=== PATIENT | female | born 1960 | race Caucasian/White ===

== ENCOUNTER 2020-08-13 11:55 | Outpatient (REF) | payer OTHER, SELFPAY ==
[2020-08-13 14:37] LABS: Basophils Percent Auto 0.5 % (0-2); Eosinophils Percent Auto 0.6 % (0-4); Hematocrit 41.4 % (37-47); Hemoglobin 13.3 g/dl (12.0-16.0); Imm Gran Abs Auto 0.02 X10*3/uL (0.00-0.03); Imm Gran Pct Auto 0.3 % (0.0-0.4); Lymphocytes Absolute Auto 2.4 X10*3/uL (1.2-4.9); Lymphocytes Percent Auto 37.8 % (20-40); MANUAL DIFF FLAG NO; Mean Corpuscular HGB Conc 32.1 g/dl (31.0-35.0); Mean Corpuscular Volume 93.2 fL (80-98); Mean Platelet Volume 11.2 fL (9.4-12.3); Monocytes Absolute Auto 0.5 X10*3/uL (0.1-1.2); Neutrophils Absolute Auto 3.4 X10*3/uL (2.0-8.3); Neutrophils Percent Auto 52.8 % (45-73); Platelet Count 219 X10*3/uL (160-400); Red Blood Count 4.44 X10*6/uL (4.20-5.50); Red Cell Distribution Width 12.6 % (11.0-16.0); White Blood Count 6.4 X10*3/uL (4.8-10.8)
[2020-08-13 15:19] LABS: Alanine Aminotransferase 14 U/L (0-31); Aspartate Amino Transferase 18 U/L (5-31)
[2020-08-14 04:47] LABS: ~HepC Num1 0.11 S/CO (0.00-0.79); ~Hepatitis C Antibody Nonreactive (Nonreactive)
[2020-08-14 04:53] LABS: HIV AB/AG Nonreactive (Nonreactive); HIV Num 1 0.08 S/CO (0.00-0.99)
== END 2020-08-13 11:56 | disposition home or self-care (01) ==
LOC: WCCF 11:55
PROVIDERS: PCP Internal Medicine; Visit Provider Internal Medicine
DX: Z02.1 Encounter for pre-employment examination (principal); Z01.84 Encounter for antibody response examination; Z23 Encounter for immunization
CPT/HCPCS: 36415; 84450; 84460; 85025; 86803; 90715; 99202

== ENCOUNTER → 2020-08-14 13:42 | Outpatient (BNVA) | payer OTHER, SELFPAY | PROVIDERS: PCP Internal Medicine; Visit Provider Physician Assistant Medical | DX: Z20.822 Contact with and (suspected) exposure to COVID-19 (principal) | CPT/HCPCS: 99213 ==

== ENCOUNTER → 2020-08-20 09:42 | Outpatient (BNVA) | payer OTHER, SELFPAY | PROVIDERS: PCP Internal Medicine; Visit Provider Physician Assistant Medical | DX: Z20.822 Contact with and (suspected) exposure to COVID-19 (principal) | CPT/HCPCS: 99213 ==

== ENCOUNTER → 2020-08-27 10:01 | Outpatient (BNVA) | payer OTHER, SELFPAY | PROVIDERS: PCP Internal Medicine | DX: Z20.822 Contact with and (suspected) exposure to COVID-19 (principal) | CPT/HCPCS: 36415; 80076; 82150; 82565; 85025; 99211 ==

== ENCOUNTER → 2020-09-24 10:36 | Outpatient (BNVA) | payer OTHER, SELFPAY | PROVIDERS: PCP Internal Medicine | DX: Z77.21 Contact with and (suspected) exposure to potentially hazardous body fluids (principal) | CPT/HCPCS: 36415; 84450; 84460; 87389; 99211 ==

== ENCOUNTER → 2020-11-24 13:03 | Outpatient (BNVA) | payer OTHER, SELFPAY | PROVIDERS: PCP Internal Medicine | DX: Z13.89 Encounter for screening for other disorder (principal) | CPT/HCPCS: 36415; 84450; 84460; 86803; 87389; 99211 ==

== ENCOUNTER 2021-01-16 07:52 | Outpatient (REF) | payer OTHER, SELFPAY ==
[2021-01-17 12:45] LABS: BV Int Neg Control Negative (Negative); BV Int Pos Control Positive (Positive)
[2021-01-20 17:22] LABS: HPV mRNA E6/E7 rflx Not Detected (Not Detected)
== END 2021-01-16 07:53 | disposition home or self-care (01) ==
LOC: HO.LAB 07:52
PROVIDERS: PCP Internal Medicine; Visit Provider Obstetrics & Gynecology
DX: Z01.411 Encounter for gynecological examination (general) (routine) with abnormal findings (principal); Z11.51 Encounter for screening for human papillomavirus (HPV); N95.8 Other specified menopausal and perimenopausal disorders; N89.8 Other specified noninflammatory disorders of vagina
CPT/HCPCS: 87480; 87510; 87624; 87660; 88142

== ENCOUNTER 2021-02-03 07:02 | Outpatient (REF) | payer OTHER, SELFPAY ==
[2021-02-03 08:30] LABS: MANUAL DIFF FLAG NO
[2021-02-03 08:36] LABS: Basophils Percent Auto 0.8 % (0-2); Eosinophils Absolute Auto 0.1 X10*3/uL (0.0-0.4); Eosinophils Percent Auto 1.7 % (0-4); Hematocrit 43.5 % (37-47); Hemoglobin 13.7 g/dl (12.0-16.0); Imm Gran Abs Auto 0.01 X10*3/uL (0.00-0.03); Imm Gran Pct Auto 0.2 % (0.0-0.4); Lymphocytes Absolute Auto 1.9 X10*3/uL (1.2-4.9); Lymphocytes Percent Auto 39.9 % (20-40); Mean Corpuscular HGB Conc 31.5 g/dl (31.0-35.0); Mean Corpuscular Hemoglobin 29.5 pg (27.0-33.0); Mean Corpuscular Volume 93.5 fL (80-98); Mean Platelet Volume 10.9 fL (9.4-12.3); Monocytes Absolute Auto 0.3 X10*3/uL (0.1-1.2); Monocytes Percent Auto 6.9 % (2-11); Neutrophils Absolute Auto 2.4 X10*3/uL (2.0-8.3); Neutrophils Percent Auto 50.5 % (45-73); Platelet Count 204 X10*3/uL (160-400); Red Blood Count 4.65 X10*6/uL (4.20-5.50); Red Cell Distribution Width 12.6 % (11.0-16.0); White Blood Count 4.8 X10*3/uL (4.8-10.8)
[2021-02-03 08:59] LABS: Alanine Aminotransferase 16 U/L (0-31); Albumin Level 4.3 g/dL (3.5-5.0); Alkaline Phosphatase 51 U/L (39-117); Anion Gap 12 (12-20); Aspartate Amino Transferase 20 U/L (5-31); Bilirubin Total 0.8 mg/dL (0.0-1.0); Blood Urea Nitrogen 13 mg/dL (9-16); Calcium 9.8 mg/dL (8.4-10.2); Carbon Dioxide 28 mmol/L (22-29); Chloride 108 mmol/L (96-108); Cholesterol 271 mg/dL; Estimated Glomerular Filt Rate > 60; Glucose Random 92 mg/dL (60-115); HDL Cholesterol 43 mg/dL; LDL Cholesterol Calculated 202 mg/dl; Potassium 4.1 mmol/L (3.3-5.1); Sodium 144 mmol/L (135-145); Total Protein 6.9 g/dL (6.5-8.0); Triglycerides 132 mg/dL
[2021-02-03 09:24] LABS: Free T4 (Free Thyroxine) 0.94 ng/dL (0.71-1.85); Thyroid Stimulating Hormone 0.82 uIU/mL (0.32-4.0); Vitamin D 25-OH Total 35.1 ng/mL (>30)
[2021-02-03 09:28] LABS: Folate 16.9 ng/mL (> or = 4.0); Vitamin B12 361 pg/mL (200-900)
== END 2021-02-03 07:03 | disposition home or self-care (01) ==
LOC: HO.LAB 07:02
PROVIDERS: PCP Internal Medicine; Visit Provider Internal Medicine
DX: E78.00 Pure hypercholesterolemia, unspecified (principal)
CPT/HCPCS: 36415; 80053; 80061; 82306; 82607; 82746; 84439; 84443; 85025

== ENCOUNTER 2021-02-19 09:37 | Outpatient (REF) | payer OTHER, SELFPAY ==
--- NOTE | ~2021-02-19 | MM_ITS ---
EXAMINATION: MM SCREENING DIGITAL BREAST TOMOSYNTHESIS, BILATERAL CLINICAL INFORMATION: Screening. Asymptomatic. The lifetime risk of breast cancer based on the Tyrer-Cuzick Model is 7%. COMPARISON: Mammography: 07/26/2018, 07/20/2016, 07/13/2016 TECHNIQUE: Digital breast tomosynthesis is performed in both the craniocaudal and mediolateral oblique views along with computer-aided detection (CAD). Synthesized 2D images are generated from the tomosynthesis. FINDINGS: The breasts are heterogeneously dense, which may obscure small masses (ACR BI-RADS breast composition Category c). There are no significant masses, abnormal calcifications, or other abnormalities. Breast tissue composition borders on average fibroglandular. There is no significant change from prior exams. The axilla and skin contours are unremarkable. MM/MM tomosynthesis screening BI IMPRESSION: No mammographic evidence of malignancy. ASSESSMENT: BI-RADS 1: Negative RECOMMENDATION: Routine annual mammography screening. This patient's information was entered into a reminder system with a target due date for their next mammogram.
== END 2021-02-19 09:38 | disposition home or self-care (01) ==
LOC: HO.MAMMO 09:37
PROVIDERS: Visit Provider Obstetrics & Gynecology
DX: Z12.31 Encounter for screening mammogram for malignant neoplasm of breast (principal)
CPT/HCPCS: 77063; 77067

== ENCOUNTER → 2021-02-23 09:02 | Outpatient (BNVA) | payer OTHER, SELFPAY | PROVIDERS: PCP Internal Medicine | DX: Z13.79 Encounter for other screening for genetic and chromosomal anomalies (principal) | CPT/HCPCS: 36415; 84450; 84460; 86803; 87389; 99211 ==

== ENCOUNTER 2021-10-09 11:36 | Outpatient (REF) | payer OTHER, SELFPAY ==
[2021-10-09 12:15] LABS: COVID-19 Test Negative (Negative); IDNOW Serial# 08D9AD1C
== END 2021-10-09 11:37 | disposition home or self-care (01) ==
LOC: HO.LAB 11:36
PROVIDERS: Visit Provider Internal Medicine
DX: Z20.822 Contact with and (suspected) exposure to COVID-19 (principal)
CPT/HCPCS: 87635; C9803

== ENCOUNTER → 2022-05-19 09:43 | Outpatient (RCR) | payer OTHER, SELFPAY ==
[2020-06-11 07:34] LABS: COVID-19 Test Negative (Negative)
[2020-06-18 07:55] LABS: COVID-19 Test Negative (Negative)
[2020-06-25 08:19] LABS: COVID-19 Test Negative (Negative)
[2020-07-02 07:29] LABS: COVID-19 Test Negative (Negative)
[2020-07-09 07:48] LABS: COVID-19 Test Negative (Negative)
[2020-07-16 07:17] LABS: COVID-19 Test Positive (Negative)
[2020-07-19 13:59] LABS: SARS-COV-2 PCR UMBRL NOT DETECTED
== END | disposition home or self-care (01) ==
LOC: HO.EMPCOV 06-11 07:14
PROVIDERS: Visit Provider Internal Medicine
DX: Z20.828 Contact with and (suspected) exposure to other viral communicable diseases (principal)
CPT/HCPCS: 87635; C9803; U0003

== ENCOUNTER 2022-07-06 07:26 | Outpatient (REF) | payer OTHER, SELFPAY ==
--- NOTE | ~2022-07-06 | MM_ITS ---
EXAMINATION: MM SCREENING DIGITAL BREAST TOMOSYNTHESIS, BILATERAL CLINICAL INFORMATION: Screening. Asymptomatic. The lifetime risk of breast cancer based on the Tyrer-Cuzick Model is 6%. COMPARISON: Mammography: 02/19/2021, 07/26/2018, 07/20/2016 TECHNIQUE: Digital breast tomosynthesis is performed in both the craniocaudal and mediolateral oblique views along with computer-aided detection (CAD). Synthesized 2D images are generated from the tomosynthesis. FINDINGS: The breasts are heterogeneously dense, which may obscure small masses (ACR BI-RADS breast composition Category c). Breast tissue composition borders on average fibroglandular. There is no architectural abnormality or developing density. There are no significant masses, abnormal calcifications, or other abnormalities. The axilla are unremarkable. No significant changes. MM/MM tomosynthesis screening BI IMPRESSION: No mammographic evidence of malignancy. ASSESSMENT: BI-RADS 1: Negative RECOMMENDATION: Routine annual mammography screening. This patient's information was entered into a reminder system with a target due date for their next mammogram.
== END 2022-07-06 07:27 | disposition home or self-care (01) ==
LOC: HO.MAMMO 07:26
PROVIDERS: PCP Internal Medicine; Visit Provider Internal Medicine
DX: Z12.31 Encounter for screening mammogram for malignant neoplasm of breast (principal)
CPT/HCPCS: 77063; 77067

== ENCOUNTER 2022-12-31 12:58 | Outpatient (REF) | payer OTHER, SELFPAY ==
--- NOTE | ~2022-12-31 | US_ITS ---
EXAMINATION: US LOWER EXTREMITY VENOUS (REFLUX EXAM), BILATERAL CLINICAL INDICATION: Chronic venous insufficiency with history of varicose veins pain. Prior bilateral great saphenous vein ablation COMPARISON: None. TECHNIQUE: Color flow triplex imaging and compression Doppler was performed to evaluate both the deep and the superficial systems bilaterally. To evaluate the superficial system, the examination was performed in the upright position. Color-flow Doppler ultrasound and compression ultrasound were utilized. In addition, maneuvers were utilized to demonstrate reflux. FINDINGS: 1. DEEP VENOUS ULTRASOUND OF THE RIGHT LOWER EXTREMITY: Common Femoral Vein: Compressible, normal respiratory variation and augmented flow. Femoral Vein: Compressible, normal color flow and augmentation. Popliteal Vein: Compressible, normal augmentation. Deep Reflux: Deep venous reflux in the common femoral vein measuring 1268 ms There is no evidence of a Luevano's cyst. 2. SUPERFICIAL ULTRASOUND WITH DOPPLER OF RIGHT LOWER EXTREMITY: GREAT SAPHENOUS VEIN: Saphenofemoral Junction: 1.1 cm; Reflux: 2396 ms Proximal Thigh: 0.9 cm; Reflux: 2820 ms Mid Thigh: Not visualized Above Knee: Not visualized At Knee: Not visualized Below Knee: 0.2 cm; Reflux: 0 ms Mid Calf: 0.3 cm; Reflux: 0 ms Ankle: 0.3 cm; Reflux: 0 ms DUPLICATED MEDIAL GREAT SAPHENOUS VEIN: Diameter: None imaged Reflux: NA DUPLICATED LATERAL GREAT SAPHENOUS VEIN: Diameter: 0.2 cm Reflux: None SMALL SAPHENOUS VEIN: Proximal: 0.6 cm; Reflux: 0 ms Distal: 0.2 cm; Reflux: 0 ms VEIN OF GIACOMINI: Size: NA Reflux: NA PERFORATORS: Location: Proximal and mid calf off the great saphenous vein and midcalf off the small saphenous Size: 0.3 cm Reflux: None VARICOSITIES: Location: Large varicosities extending from the proximal and mid thigh tube in the proximal calf which are arising from the great saphenous vein remnant in the proximal thigh Size: 0.7 to 0.9 cm Reflux: Ranging from 1104 ms to 2416 ms 3. DEEP VENOUS ULTRASOUND OF THE LEFT LOWER EXTREMITY: Common Femoral Vein: Compressible, normal respiratory variation and augmented flow. Femoral Vein: Compressible, normal color flow and augmentation. Popliteal Vein: Compressible, normal augmentation. Deep Reflux: Deep venous reflux seen in the popliteal vein measuring 1128 ms There is no evidence of a Luevano's cyst. 4. SUPERFICIAL ULTRASOUND WITH DOPPLER OF LEFT LOWER EXTREMITY: GREAT SAPHENOUS VEIN: Saphenofemoral Junction: 1.0 cm; Reflux: 2452 ms Proximal Thigh: Not visualized Mid Thigh: Not visualized Above Knee: 0.4 cm; Reflux: 2956 ms At Knee: 0.3 cm; Reflux: 0 ms Below Knee: 0.3 cm; Reflux: 0 ms Mid Calf: 0.4 cm; Reflux: 1440 ms Ankle: 0.4 cm; Reflux: 2264 ms DUPLICATED MEDIAL GREAT SAPHENOUS VEIN: Diameter: None imaged Reflux: NA DUPLICATED LATERAL GREAT SAPHENOUS VEIN: Diameter: None imaged Reflux: NA SMALL SAPHENOUS VEIN: Proximal: 0.4 cm; Reflux: 0 ms Distal: 0.1 cm; Reflux: 0 ms VEIN OF GIACOMINI: Size: NA Reflux: NA PERFORATORS: Location: Mid calf Size: 0.4 cm Reflux: None VARICOSITIES: Location: Left groin arising from the saphenofemoral junction extending through the thigh. Varicosities are arising from the residual great saphenous vein in the proximal calf Size: 0.4 to 0.8 cm Reflux: Ranging from 844 ms to 2884 ms US/US venous duplex LE BI IMPRESSION: Right: Great saphenous vein from the proximal to mid thigh to the knee is occluded consistent with prior ablation. Residual great saphenous vein at the saphenofemoral junction and proximal thigh is dilated with severe reflux feeding into large residual or recurrent varicose veins throughout the right lower extremity as described above Left: Great saphenous vein from the proximal thigh to the mid thigh is occluded consistent with prior ablation. Larger varicose veins arising from the saphenofemoral junction. Residual great saphenous vein from the distal thigh through the ankle with severe reflux as described above. Additional branching varicosities arising in the proximal calf as described above
== END 2022-12-31 12:59 | disposition home or self-care (01) ==
LOC: HO.US 12:58
PROVIDERS: PCP Internal Medicine; Visit Provider Surgery Vascular Surgery
DX: I83.893 Varicose veins of bilateral lower extremities with other complications (principal)
CPT/HCPCS: 93970

== ENCOUNTER 2023-02-25 12:35 | Outpatient (AMB) | payer OTHER, SELFPAY ==
--- NOTE | 2023-02-25 12:36 | A.OFFVIS_ITS ---
Intake Vital Signs 02/25/23 12:37 Height 5 ft 6 in Weight 164 lb BMI 26.5 Intake Visit Reasons: Left GSV Venaseal Allergies atorvastatin Allergy (Unknown, Verified 02/25/23 12:37) joint pain pravastatin Allergy (Unknown, Verified 02/25/23 12:37) Unknown simvastatin Allergy (Unknown, Verified 02/25/23 12:37) Unknown [facility] Medical History Annual physical exam Anxiety Colonoscopy refused COVID-19 virus infection Exposure to blood or body fluid Hypercholesterolemia Low back pain Migraine Vitamin D deficiency Surgical History History of detached retina repair History of eye surgery History of varicose veins Family History Father No problems noted. Mother Stroke Hypertension Paternal Uncle Myocardial infarction Family/Other Depression with anxiety Daughter Substance abuse Social History Housing: House Alcohol intake: never Patient Tobacco Use Status: Former Tobacco user Years Smoked: teenager e-Cigarette/Vaping Use: Never Used Second Hand Smoke Exposure: Yes service: No Current occupational status: employed Female Reproductive History Menstrual Age of Menarche: 12 Physical Exam Vital Signs: BMI result Body Mass Index 26.5 Office Procedures Vascular Office Procedure Details Details: Diagnosis: Left Leg varicose veins with inflammation Procedure: Endovenous Ablation of the left Great Saphenous Vein with VenaSeal Closure System Anesthesia: Local infiltration 5 cc, Estimated Blood Loss: min Specimen: none Duplex ultrasound was used to map out the insufficient saphenous vein, and access was determined and marked on the overlying skin. The depth and diameter of the vein(s) to be treated was documented. The patient was placed supine on the procedure table and the leg was prepped and draped using sterile technique. Ultasound guidance was again used to localize the access site. 1% lidocaine was injected as a local anesthetic in the subcutaneous tissues at the target location in the GSV in the lower leg. Using ultrasound guidance, access was gained at this location with the 19 gauge thin walled access needle and followed by introduction of a short guidewire, location confirmed with ultrasound. A small, 3 mm incision was made at the access site to allow for introduction and placement of the 7 Fr x7cm introducer/dilator. The dilator and guidewire were removed. The 0.035 guidewire from the VenaSeal kit was then introduced and positioned at the saphenofemoral junction using ultrasound guidance. The 80 cm 7 Fr introducer sheath/dilator was positioned 5cm from the saphenofemoral junction. The guidewire and dilator were removed, and the remaining sheath was flushed with sterile saline, with the syringe remaining in place prior to the n ext steps. The cyanoacrylate adhesive was precisely primed into the 5 F delivery catheter and this catheter/syringe combination was attached within the dispenser gun. This assembly was introduced through the 7F sheath and positioned 5 cm caudal of the saphenofemoral junction under ultrasound guidance. The steps from the IFU were followed for dispensing amounts, locations and compression times, 2 aliquots proximally with 3 minutes of compression, and 1 aliquot every 3 cm distally with 30 sec of compression along the course of the vessel. Following the last injection and compression sequence, the catheter and introducer sheath were pulled out from the access site. Hemostasis was achieved with manual compression and an adhesive bandage was applied to the incision. Ultrasound confirmed complete coaptation and closure of the treated segments of the GSV, and the absence of any DVT at the saphenofemoral junction. Treatment time was approximately 4 minutes and the vein length treated was 15 cm. The drapes were removed and the patient cleaned and prepared for discharge. Post op ultrasound check is scheduled for 48-72 hours and the patient was given written post-op instructions. 52358 - Endoven Ther Chem Adhes 1st All charges added?: Procedure code (CPT) selection complete Coding Level of Care Code Procedure Only Diagnoses CPT Codes Details - Vascular 3: 16122 - Endoven Ther Chem Adhes 1st ([id number])
[2023-02-25 12:37] VITALS: BMI 26.5
== END 2023-02-25 13:18 | disposition home or self-care (01) ==
PROVIDERS: PCP Internal Medicine; Visit Provider Surgery Vascular Surgery
DX: I83.12 Varicose veins of left lower extremity with inflammation (principal)
CPT/HCPCS: 36482; 76937

== ENCOUNTER → 2023-02-25 12:35 | Outpatient (BNVA) | payer OTHER, SELFPAY | PROVIDERS: PCP Internal Medicine; Visit Provider Surgery Vascular Surgery | DX: M79.605 Pain in left leg (principal); I83.12 Varicose veins of left lower extremity with inflammation | CPT/HCPCS: 36482 ==

== ENCOUNTER 2023-02-28 12:25 | Outpatient (REF) | payer OTHER, SELFPAY ==
--- NOTE | ~2023-02-28 | US_ITS ---
EXAMINATION: TRIPLEX SCANNING OF LEFT LOWER EXTREMITY; SUPERFICIAL ULTRASOUND WITH DOPPLER OF LEFT LOWER EXTREMITY CLINICAL INFORMATION: Status post Venaseal of a 2.1 cm segment of the left great saphenous vein Ambulatory phlebectomy performed: No COMPARISON: preprocedure studies. TECHNIQUE: Color flow triplex imaging and compression Doppler were performed as well as superficial ultrasound with Doppler. FINDINGS: LEFT LOWER EXTREMITY DEEP VENOUS SYSTEM: Respiratory variation, normal compression and augmented flow are noted throughout the lower extremity. The visualized common femoral vein, femoral vein, profunda femoral vein, popliteal vein and the calf veins show no evidence of deep venous thrombosis. There is no evidence of Luevano's cyst. SUPERFICIAL VENOUS SYSTEM: The great saphenous vein is occluded from the access site to just before the saphenofemoral junction. There is no extension of thrombus into the deep system. US/US venous duplex LE LT IMPRESSION: No evidence of DVT.
== END 2023-02-28 12:26 | disposition home or self-care (01) ==
LOC: HO.US 12:25
PROVIDERS: PCP Internal Medicine; Visit Provider Surgery Vascular Surgery
DX: M79.605 Pain in left leg (principal)
CPT/HCPCS: 93971

== ENCOUNTER 2023-03-15 08:55 | Outpatient (AMB) | payer OTHER, SELFPAY ==
[2023-03-15 08:58] VITALS: BMI 26.5
--- NOTE | 2023-03-15 08:58 | A.OFFVIS_ITS ---
Intake Vital Signs 03/15/23 08:58 Height 5 ft 6 in Weight 164 lb BMI 26.5 Intake Visit Reasons: 2 wk follow up Left Venaseal 02/25/23 Intake Note: Patient is here for a 2 week follow up left venaseal 02/25/23, patient stated left leg feels better and no complaints about right leg Allergies atorvastatin Allergy (Unknown, Verified 03/15/23 09:00) joint pain pravastatin Allergy (Unknown, Verified 03/15/23 09:00) Unknown simvastatin Allergy (Unknown, Verified 03/15/23 09:00) Unknown HPI 2 wk follow up Left Venaseal 02/25/23 HPI Details Patient is status post left lower extremity Cyanoacralate ablation. She appears to be doing relatively well with that she reports that the swelling and discomfort have decreased significantly. She now presents for follow-up. Of note she does report right lower extremity discomfort in terms her superficial varicosities. They do appear to be a source of pain and discomfort. 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 [facility] Medical History Annual physical exam Anxiety Colonoscopy refused COVID-19 virus infection Exposure to blood or body fluid Hypercholesterolemia Low back pain Migraine Vitamin D deficiency Surgical History History of detached retina repair History of eye surgery History of varicose veins Family History Father No problems noted. Mother Stroke Hypertension Paternal Uncle Myocardial infarction Family/Other Depression with anxiety Daughter Substance abuse Social History Housing: House Alcohol intake: never Patient Tobacco Use Status: Former Tobacco user Years Smoked: teenager e-Cigarette/Vaping Use: Never Used Second Hand Smoke Exposure: Yes service: No Current occupational status: employed Female Reproductive History Menstrual Age of Menarche: 12 Review of Systems Const Reports as per HPI ENT Reports no additional complaints Card Denies chest pain, Denies chest pain at rest and Denies chest pain with activity Resp Denies chest congestion and Denies cough GI Reports no additional complaints Musc Details: pain over varicosities, aching of lower extremities, swelling, cramping, heaviness and tiredness, itching Denies abnormal gait Skin/Breast Reports pruritus and Denies wounds Neuro Reports no additional complaints and Denies abnormal gait Psych Denies no additional complaints Physical Exam Vital Signs: BMI result Body Mass Index 26.5 Const General: cooperative, healthy appearing and comfortable Orientation/consciousness: oriented to person, oriented to place and oriented to time Neck Carotids: no bruits Chest Chest palpation & inspection: normal inspection of the chest and normal palpation of entire chest wall Resp Effort & Inspection: normal respiratory effort and able to speak in complete sentences Cardio Rate: regular rate Heart sounds: S1 normal heart sound present and S2 normal heart sound present Peripheral pulses: Peripheral pulses 2+ throughout GI Inspection: Yes normal to inspection Skin Other: +2 edema, large rope-like varicosities greater than 4 mm right calf and thigh CEAP Classification C4 - skin color changes Ep - Etiology Primary As - superficial veins P - reflux General skin exam: dry skin Neuro General: oriented to person, oriented to place and oriented to time Extrem Right lower extremity: full ROM, normal capillary refill and edema Left lower extremity: full ROM, normal capillary refill and edema Psych Mental Status: mental status grossly normal Assessment & Plan Assessment & Plan (1) Varicose veins of left lower extremity with inflammation: Comment: Venous ablation 2010 - Dr. Fernandez 02/25/2023 - left great saphenous vein Cyanoacralate ablation Code(s): I83.12 - Varicose veins of left lower extremity with inflammation (2) Varicose veins of right lower extremity with inflammation: Code(s): I83.11 - Varicose veins of right lower extremity with inflammation Plan: This patient has varicose veins with inflammation. They continue to be a source of discomfort for the patient. The patient has tried conservative treatment with compression, leg elevation and exercise program for over 3 months time. They have been compliant with all treatment. This has provided minimal relief for the patient. I do not anticipate this course of treatment will alter the underlying etiology. The patient has been scheduled for lower extremity venous treatment inclusive of --- right lower extremity microphlebectomy. Risks, benefits, and complications of this procedure has been discussed in detail with the patient including but not limited to bleeding, infection, and the development of a DVT. The patient has demonstrated a clear understanding and has consented. We will schedule the patient as soon as possible. Thank you for allowing us to participate in this patient's care. If there are any questions or concerns please do not hesitate to contact us. Coding Level of Care Code Est Pt Level 4 (73652) Diagnoses Varicose veins of left lower extremity with inflammation I83.12 Varicose veins of right lower extremity with inflammation I83.11
== END 2023-03-15 09:38 | disposition home or self-care (01) ==
PROVIDERS: PCP Internal Medicine; Visit Provider Surgery Vascular Surgery
DX: I83.12 Varicose veins of left lower extremity with inflammation (principal); I83.11 Varicose veins of right lower extremity with inflammation
CPT/HCPCS: 99214

== ENCOUNTER → 2023-03-15 08:55 | Outpatient (BNVA) | payer OTHER, SELFPAY | PROVIDERS: PCP Internal Medicine; Visit Provider Surgery Vascular Surgery ==

== ENCOUNTER 2023-04-22 09:18 | Outpatient (AMB) | payer OTHER, SELFPAY ==
--- NOTE | 2023-04-22 10:24 | A.OFFVIS_ITS ---
Intake Vital Signs 04/22/23 10:27 Height 5 ft 6 in Weight 164 lb BMI 26.5 Intake Visit Reasons: Right Leg Microphlebectomy Allergies atorvastatin Allergy (Unknown, Verified 04/22/23 10:28) joint pain pravastatin Allergy (Unknown, Verified 04/22/23 10:28) Unknown simvastatin Allergy (Unknown, Verified 04/22/23 10:28) Unknown PFSH Medical History Exposure to blood or body fluid Low back pain Annual physical exam COVID-19 virus infection Colonoscopy refused Anxiety Vitamin D deficiency Hypercholesterolemia Migraine Surgical History History of varicose veins History of detached retina repair History of eye surgery Family History Father No problems noted. Mother Stroke Hypertension Paternal Uncle Myocardial infarction Family/Other Depression with anxiety Daughter Substance abuse Social History Housing: House Alcohol intake: never Patient Tobacco Use Status: Former Tobacco user Years Smoked: teenager e-Cigarette/Vaping Use: Never Used Second Hand Smoke Exposure: Yes service: No Current occupational status: employed Female Reproductive History Menstrual Age of Menarche: 12 Physical Exam Vital Signs: BMI result Body Mass Index 26.5 Office Procedures Vascular Office Procedure Details Details: Diagnosis: Right Leg varicose veins with inflammation Procedure: Right leg Microphlebectomy Anesthesia: Local Infiltration 20 cc, Tumescent: 0 cc. Varicose veins were marked in the standing position on the right leg and the patient was then placed in the supine position. The right lower extremity was prepared and draped to allow knee flexion in the sterile field. The patient had large superficial varicose veins with significant symptoms of pain. It was t herefore determined to perform microphlebectomies of the clusters of varicose veins. The patient had bulging varicose veins which were previously marked in the standing position. A small stab incision was made longitudinally directly overlying the varicose vein in the calf and the varicose vein was grasped with a hemostat aided by a vein hook. It was then dissected as far proximally and distally as possible and avulsed. A total of 23 stab incisions were made and the procedure of stab phlebectomies was repeated 23 times. Hemostasis was checked and stab incision sites were closed with steri-strips and sterile dressing was given with gauze and krilex wrap followed by an haroon bandage. There were no complications and blood loss was minimal. Post-Op instructions were given and a follow-up appointment was recommended. [id number] - Stab Phlebectomy >20 All charges added?: Procedure code (CPT) selection complete Coding Level of Care Code Procedure Only CPT Codes Details - Vascular 6: 40641 - Stab Phlebectomy >20 ([id number])
[2023-04-22 10:27] VITALS: BMI 26.5
== END 2023-04-22 10:20 | disposition home or self-care (01) ==
PROVIDERS: PCP Internal Medicine; Visit Provider Surgery Vascular Surgery
DX: I83.11 Varicose veins of right lower extremity with inflammation (principal)
CPT/HCPCS: 37766

== ENCOUNTER → 2023-04-22 09:18 | Outpatient (BNVA) | payer OTHER, SELFPAY | PROVIDERS: PCP Internal Medicine; Visit Provider Surgery Vascular Surgery | DX: I83.11 Varicose veins of right lower extremity with inflammation (principal) | CPT/HCPCS: 37766 ==

== ENCOUNTER 2023-05-05 08:55 | Outpatient (AMB) | payer OTHER, SELFPAY ==
--- NOTE | 2023-05-05 09:09 | MHC.OFFVIS ---
Intake Vital Signs 05/05/23 09:10 Height 5 ft 6 in Weight 164 lb BMI 26.5 Intake Visit Reasons: 2 week follow up micro Intake Note: 2 week follow up Right LE 04/22/23 w/ hx of Left LE Venaseal 02/25/23. Pt states she has some bruising and discomfort from Right LE micro, she states she had some bleeding as well from incisions. Pt also states that she has some pain to the touch over incisions. Left LE feels fine Accompanied by: Self / Same As Patient Allergies atorvastatin Allergy (Unknown, Verified 05/05/23 09:13) joint pain pravastatin Allergy (Unknown, Verified 05/05/23 09:13) Unknown simvastatin Allergy (Unknown, Verified 05/05/23 09:13) Unknown HPI 2 week follow up micro HPI Details Very pleasant 62-year-old status post right leg microphlebectomy. She appears to be doing relatively well postprocedure. She did have a fair amount of bruising in the medial aspect of the thigh but other than that doing fairly well. She now presents for routine postprocedure follow-up. [facility] Medical History Exposure to blood or body fluid Low back pain Annual physical exam COVID-19 virus infection Colonoscopy refused Anxiety Vitamin D deficiency Hypercholesterolemia Migraine Surgical History History of varicose veins History of detached retina repair History of eye surgery Family History Father No problems noted. Mother Stroke Hypertension Paternal Uncle Myocardial infarction Family/Other Depression with anxiety Daughter Substance abuse Social History Housing: House Alcohol intake: never Patient Tobacco Use Status: Former Tobacco user Years Smoked: teenager e-Cigarette/Vaping Use: Never Used Second Hand Smoke Exposure: Yes service: No Current occupational status: employed Female Reproductive History Menstrual Age of Menarche: 12 Review of Systems Const Reports as per HPI ENT Reports no additional complaints Card Denies chest pain, Denies chest pain at rest and Denies chest pain with activity Resp Denies chest congestion and Denies cough GI Reports no additional complaints Musc Details: pain over varicosities, aching of lower extremities, swelling, cramping, heaviness and tiredness, itching Denies abnormal gait Skin/Breast Reports pruritus and Denies wounds Neuro Reports no additional complaints and Denies abnormal gait Psych Denies no additional complaints Physical Exam Vital Signs: BMI result Body Mass Index 26.5 Const General: cooperative, healthy appearing and comfortable Orientation/consciousness: oriented to person, oriented to place and oriented to time Neck Carotids: no bruits Chest Chest palpation & inspection: normal inspection of the chest and normal palpation of entire chest wall Resp Effort & Inspection: normal respiratory effort and able to speak in complete sentences Cardio Rate: regular rate Heart sounds: S1 normal heart sound present and S2 normal heart sound present Peripheral pulses: Peripheral pulses 2+ throughout GI Inspection: Yes normal to inspection Skin Other: +2 edema, large rope-like varicosities greater than 4 mm more so left thigh CEAP Classification C4 - skin color changes Ep - Etiology Primary As - superficial veins P - reflux General skin exam: dry skin Neuro General: oriented to person, oriented to place and oriented to time Extrem Right lower extremity: full ROM, normal capillary refill and edema Left lower extremity: full ROM, normal capillary refill and edema Psych Mental Status: mental status grossly normal Assessment & Plan Assessment & Plan (1) Varicose veins of right lower extremity with inflammation: Comment: 04/22/2023 - right leg microphlebectomy Code(s): I83.11 - Varicose veins of right lower extremity with inflammation Plan: Patient has done well with microphlebectomy. She does have some residual varicosities in the left lower extremity. At the current time she would like to hold off and treat this conservatively. We did discuss conservative measures including compression, elevation, exercise. The patient will follow up with us in approximately 3 months time. Thank you for allowing us to assist in her care. If there are any questions or concerns please do not hesitate to contact us. (2) Varicose veins of left lower extremity with inflammation: Comment: Venous ablation 2010 - Dr. Fernandez 02/25/2023 - left great saphenous vein Cyanoacralate ablation Code(s): I83.12 - Varicose veins of left lower extremity with inflammation Coding Level of Care Code Est Pt Level 3 (86266) Diagnoses Varicose veins of right lower extremity with inflammation I83.11 Varicose veins of left lower extremity with inflammation I83.12
[2023-05-05 09:10] VITALS: BMI 26.5
== END 2023-05-05 09:31 | disposition home or self-care (01) ==
PROVIDERS: PCP Internal Medicine; Visit Provider Surgery Vascular Surgery
DX: I83.11 Varicose veins of right lower extremity with inflammation (principal); I83.12 Varicose veins of left lower extremity with inflammation
CPT/HCPCS: 99213

== ENCOUNTER → 2023-05-05 08:55 | Outpatient (BNVA) | payer OTHER, SELFPAY | PROVIDERS: PCP Internal Medicine; Visit Provider Surgery Vascular Surgery ==

== ENCOUNTER 2023-07-12 07:36 | Outpatient (REF) | payer OTHER, SELFPAY ==
--- NOTE | ~2023-07-12 | MM_ITS ---
EXAMINATION: MM SCREENING DIGITAL BREAST TOMOSYNTHESIS, BILATERAL CLINICAL INFORMATION: Screening. Asymptomatic. COMPARISON: Mammography: This study is compared with prior exams dating back to 2015. TECHNIQUE: Digital breast tomosynthesis is performed in both the craniocaudal and mediolateral oblique views along with computer-aided detection (CAD). Synthesized 2D images are generated from the tomosynthesis. FINDINGS: There are scattered areas of fibroglandular density (ACR BI-RADS breast composition Category b). There are no significant masses, abnormal calcifications, or other abnormalities. MM/MM tomosynthesis screening BI IMPRESSION: No mammographic evidence of malignancy. ASSESSMENT: BI-RADS BI-RADS 1 - Negative RECOMMENDATION: Routine annual mammography screening. 1 year F/U This examination should not preclude the clinical evaluation of a suspicious palpable abnormality. This patient's information was entered into a reminder system with a target due date for their next mammogram.
== END 2023-07-12 07:37 | disposition home or self-care (01) ==
LOC: HO.MAMMO 07:36
PROVIDERS: PCP Internal Medicine; Visit Provider Internal Medicine
DX: Z12.31 Encounter for screening mammogram for malignant neoplasm of breast (principal)
CPT/HCPCS: 77063; 77067

== ENCOUNTER → 2023-07-12 07:45 | Outpatient (BNV) | payer OTHER, SELFPAY | PROVIDERS: PCP Internal Medicine; Visit Provider Radiology Diagnostic Radiology | DX: Z12.31 Encounter for screening mammogram for malignant neoplasm of breast (principal) | CPT/HCPCS: 77063; 77067 ==

== ENCOUNTER 2023-08-16 13:46 | Outpatient (AMB) | payer OTHER, SELFPAY ==
--- NOTE | 2023-08-16 13:47 | MHC.OFFVIS ---
Intake Vital Signs 08/16/23 13:50 Height 5 ft 6 in Weight 168 lb BMI 27.1 BP 158/84 H Blood Pressure Location Rt brachial Position Sitting Pulse 87 Pulse Source Pulse Oximeter Pulse Oximetry (%) 97 Oxygen Delivery Method Room Air Intake Visit Reasons: follow up leg check Intake Note: Pt presents to the office today for a follow up leg check. Pt states she gets discomfort in both legs after standing or walking longer periods of time. Pt denies any swelling. Allergies atorvastatin Allergy (Unknown, Verified 08/16/23 13:51) joint pain pravastatin Allergy (Unknown, Verified 08/16/23 13:51) Unknown simvastatin Allergy (Unknown, Verified 08/16/23 13:51) Unknown HPI follow up leg check HPI Details Very pleasant 62-year-old female presents for follow-up regarding venous disease. She is undergone previous venous procedures including right leg microphlebectomy with us. She continues to have discomfort and pain on her left lower extremity veins as well. 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 She now presents for routine follow-up. [facility] Medical History Exposure to blood or body fluid Low back pain Annual physical exam COVID-19 virus infection Colonoscopy refused Anxiety Vitamin D deficiency Hypercholesterolemia Migraine Surgical History History of varicose veins History of detached retina repair History of eye surgery Family History Father No problems noted. Mother Stroke Hypertension Paternal Uncle Myocardial infarction Family/Other Depression with anxiety Daughter Substance abuse Social History Housing: House Alcohol intake: never Patient Tobacco Use Status: Former Tobacco user Years Smoked: teenager e-Cigarette/Vaping Use: Never Used Second Hand Smoke Exposure: Yes service: No Current occupational status: employed Female Reproductive History Menstrual Age of Menarche: 12 Review of Systems Const Reports as per HPI ENT Reports no additional complaints Card Denies chest pain, Denies chest pain at rest and Denies chest pain with activity Resp Denies chest congestion and Denies cough GI Reports no additional complaints Musc Details: pain over varicosities, aching of lower extremities, swelling, cramping, heaviness and tiredness, itching Denies abnormal gait Skin/Breast Reports pruritus and Denies wounds Neuro Reports no additional complaints and Denies abnormal gait Psych Denies no additional complaints Physical Exam Vital Signs: Last Vital Signs Pulse 87 08/16/23 13:50 BP 158/84 H 08/16/23 13:50 Pulse Ox 97 08/16/23 13:50 Oxygen Delivery Method Room Air 08/16/23 13:50 BMI result Body Mass Index 27.1 Const General: cooperative, healthy appearing and comfortable Orientation/consciousness: oriented to person, oriented to place and oriented to time Neck Carotids: no bruits Chest Chest palpation & inspection: normal inspection of the chest and normal palpation of entire chest wall Resp Effort & Inspection: normal respiratory effort and able to speak in complete sentences Cardio Rate: regular rate Heart sounds: S1 normal heart sound present and S2 normal heart sound present Peripheral pulses: Peripheral pulses 2+ throughout GI Inspection: Yes normal to inspection Skin Other: +2 edema, large rope-like varicosities greater than 4 mm left knee and thigh CEAP Classification C4 - skin color changes Ep - Etiology Primary As - superficial veins P - reflux General skin exam: dry skin Neuro General: oriented to person, oriented to place and oriented to time Extrem Right lower extremity: full ROM, normal capillary refill and edema Left lower extremity: full ROM, normal capillary refill and edema Psych Mental Status: mental status grossly normal Assessment & Plan Assessment & Plan (1) Varicose veins of right lower extremity with inflammation: Comment: 04/22/2023 - right leg microphlebectomy Code(s): I83.11 - Varicose veins of right lower extremity with inflammation Plan: Currently doing well. Continue with compression (2) Varicose veins of left lower extremity with inflammation: Comment: Venous ablation 2010 - Dr. Fernandez 02/25/2023 - left great saphenous vein Cyanoacralate ablation Code(s): I83.12 - Varicose veins of left lower extremity with inflammation Plan: This patient has varicose veins with inflammation. They continue to be a source of discomfort for the patient. The patient has tried conservative treatment with compression, leg elevation and exercise program for over 3 months time. They have been compliant with all treatment. This has provided minimal relief for the patient. I do not anticipate this course of treatment will alter the underlying etiology. The patient has been scheduled for lower extremity venous treatment inclusive of --- left leg microphlebectomy. Risks, benefits, and complications of this procedure has been discussed in detail with the patient including but not limited to bleeding, infection, and the development of a DVT. The patient has demonstrated a clear understanding and has consented. We will schedule the patient as soon as possible. Thank you for allowing us to participate in this patient's care. If there are any questions or concerns please do not hesitate to contact us. Coding Level of Care Code Est Pt Level 3 (17831) Diagnoses Varicose veins of right lower extremity with inflammation I83.11 Varicose veins of left lower extremity with inflammation I83.12
[2023-08-16 13:50] VITALS: BP 158/84; PULSE 87; O2SAT 97; BMI 27.1
== END 2023-08-16 14:08 | disposition home or self-care (01) ==
PROVIDERS: PCP Internal Medicine; Visit Provider Surgery Vascular Surgery
DX: I83.11 Varicose veins of right lower extremity with inflammation (principal); I83.12 Varicose veins of left lower extremity with inflammation
CPT/HCPCS: 99213

== ENCOUNTER → 2023-08-16 13:46 | Outpatient (BNVA) | payer OTHER, SELFPAY | PROVIDERS: PCP Internal Medicine; Visit Provider Surgery Vascular Surgery ==

== ENCOUNTER 2023-08-25 09:27 | Outpatient (REF) | payer OTHER, SELFPAY | END 2023-08-25 09:28 | disposition home or self-care (01) | LOC: HO.SH 09:27 | PROVIDERS: Visit Provider Internal Medicine | DX: Z01.118 Encounter for examination of ears and hearing with other abnormal findings (principal); H93.13 Tinnitus, bilateral | CPT/HCPCS: 92557; 92567; 92588 ==

== ENCOUNTER 2023-09-16 07:26 | Outpatient (AMB) | payer OTHER, SELFPAY ==
[2023-09-16 07:37] VITALS: BMI 27.1
--- NOTE | 2023-09-16 07:37 | A.OFFVIS_ITS ---
Intake Vital Signs 09/16/23 07:37 Height 5 ft 6 in Weight 168 lb BMI 27.1 Intake Visit Reasons: Left LE Micro Accompanied by: Self / Same As Patient Allergies atorvastatin Allergy (Unknown, Verified 09/16/23 07:37) joint pain pravastatin Allergy (Unknown, Verified 09/16/23 07:37) Unknown simvastatin Allergy (Unknown, Verified 09/16/23 07:37) Unknown [facility] Medical History Exposure to blood or body fluid Low back pain Annual physical exam COVID-19 virus infection Colonoscopy refused Anxiety Vitamin D deficiency Hypercholesterolemia Migraine Surgical History History of varicose veins History of detached retina repair History of eye surgery Family History Father No problems noted. Mother Stroke Hypertension Paternal Uncle Myocardial infarction Family/Other Depression with anxiety Daughter Substance abuse Social History Housing: House Alcohol intake: never Patient Tobacco Use Status: Former Tobacco user Years Smoked: teenager e-Cigarette/Vaping Use: Never Used Second Hand Smoke Exposure: Yes service: No Current occupational status: employed Female Reproductive History Menstrual Age of Menarche: 12 Physical Exam Vital Signs: BMI result Body Mass Index 27.1 Office Procedures Vascular Office Procedure Details Details: Diagnosis: Left Leg varicose veins with inflammation Procedure: Left leg Microphlebectomy Anesthesia: Local Infiltration 20 cc, Tumescent: 0 cc. Varicose veins were marked in the standing position on the left leg and the patient was then placed in the supine position. The left lower extremity was prepared and draped to allow knee flexion in the sterile field. The patient had large superficial varicose veins with significant symptoms of pain. It was therefore determined to perform microphlebectomies of the clusters of varicose veins. The patient had bulging varicose veins which were previously marked in the standing position. A small stab incision was made longitudinally directly overlying the varicose vein in the calf and the varicose vein was grasped with a hemostat aided by a vein hook. It was then dissected as far proximally and distally as possible and avulsed. A total of 21 stab incisions were made and the procedure of stab phlebectomies was repeated 21 times. Hemostasis was checked and stab incision sites were closed with steri-strips and sterile dressing was given with gauze and krilex wrap followed by an haroon bandage. There were no complications and blood loss was minimal. Post-Op instructions were given and a follow-up appointment was recommended. 94416 - Stab Phlebectomy >20 All charges added?: Procedure code (CPT) selection complete Assessment & Plan Assessment & Plan (1) Varicose veins of left lower extremity with inflammation: Comment: Venous ablation 2010 - Dr. Fernandez 02/25/2023 - left great saphenous vein Cyanoacralate ablation 09/16/2023 - left leg microphlebectomy Code(s): I83.12 - Varicose veins of left lower extremity with inflammation Plan: See op note Coding Level of Care Code Procedure Only Diagnoses Varicose veins of left lower extremity with inflammation I83.12 CPT Codes Details - Vascular 6: 92397 - Stab Phlebectomy >20 ([id number])
== END 2023-09-16 09:18 | disposition home or self-care (01) ==
PROVIDERS: PCP Internal Medicine; Visit Provider Surgery Vascular Surgery
DX: I83.12 Varicose veins of left lower extremity with inflammation (principal)
CPT/HCPCS: 37766

== ENCOUNTER → 2023-09-16 07:26 | Outpatient (BNVA) | payer OTHER, SELFPAY | PROVIDERS: PCP Internal Medicine; Visit Provider Surgery Vascular Surgery | DX: I83.12 Varicose veins of left lower extremity with inflammation (principal) | CPT/HCPCS: 37766 ==

== ENCOUNTER 2023-09-29 14:57 | Outpatient (AMB) | payer OTHER, SELFPAY ==
--- NOTE | 2023-09-29 15:01 | MHC.OFFVIS ---
Intake Vital Signs 09/29/23 15:02 Height 5 ft 6 in Weight 168 lb BMI 27.1 Intake Visit Reasons: 2 week follow up Left Micro 09/16/23 Intake Note: Patient presents for follow up , she had a left leg micro on 09/16/23. She is currently taking ibuprofen for discomfort. Says it does not hurt. She states she has swelling on her left ankle that comes and goes. Allergies atorvastatin Allergy (Unknown, Verified 09/29/23 15:05) joint pain pravastatin Allergy (Unknown, Verified 09/29/23 15:05) Unknown simvastatin Allergy (Unknown, Verified 09/29/23 15:05) Unknown HPI 2 week follow up Left Micro 09/16/23 HPI Details Pleasant 62-year-old female presents for follow-up status post left leg microphlebectomy. She has undergone bilateral vein ablation is in previous right leg microphlebectomy. She reports that both legs appear to be doing significantly better. She does have some postprocedure bruising but other than that no other significant complaints. [facility] Medical History Exposure to blood or body fluid Low back pain Annual physical exam COVID-19 virus infection Colonoscopy refused Anxiety Vitamin D deficiency Hypercholesterolemia Migraine Surgical History History of varicose veins History of detached retina repair History of eye surgery Family History Father No problems noted. Mother Stroke Hypertension Paternal Uncle Myocardial infarction Family/Other Depression with anxiety Daughter Substance abuse Social History Housing: House Alcohol intake: never Patient Tobacco Use Status: Former Tobacco user Years Smoked: teenager e-Cigarette/Vaping Use: Never Used Second Hand Smoke Exposure: Yes service: No Current occupational status: employed Female Reproductive History Menstrual Age of Menarche: 12 Review of Systems Const All systems reviewed & are unremarkable except as noted in HPI and below Reports no additional complaints ENT Reports Normal hearing present Card Denies chest pain, Denies chest pain at rest, Denies chest pain with activity and Denies pedal edema Resp Denies cough GI Denies abdominal pain Musc Denies abnormal gait, Denies muscle cramps and Denies radiating pain into limb Skin/Breast Denies skin ulcer and Denies wounds Neuro Reports Normal hearing present and Denies abnormal gait Psych Reports no additional complaints Physical Exam Vital Signs: BMI result Body Mass Index 27.1 Const General: cooperative, healthy appearing and comfortable Orientation/consciousness: oriented to person, oriented to place and oriented to time HEENT Head: Yes normal to inspection Neck Neck: Yes normal visual inspection Carotids: no bruits Chest Chest palpation & inspection: normal inspection of the chest Resp Effort & Inspection: normal respiratory effort and able to speak in complete sentences Auscultation: clear to auscultation bilaterally, no crackles, no rales, no rhonchi and no wheezes Cardio Rate: regular rate Rhythm: regular rhythm Heart sounds: S1 normal heart sound present and S2 normal heart sound present Bruits: no carotid bruits Peripheral pulses: Peripheral pulses 2+ throughout GI Inspection: Yes normal to inspection Skin Wounds: no wounds Hair: normal Neuro General: oriented to person, oriented to place and oriented to time Cranial nerves: Yes CN's II-XII intact bilaterally and Yes Normal hearing present Cognition (Neuro): normal cognition Motor exam (neuro): 5/5 motor strength present throughout Extrem Other: venous exam: No significant superficial varicosities or spider telangiectasias, minimal edema General: No clubbing, No cyanosis and No edema Psych Appearance: grossly normal Mental Status: mental status grossly normal Speech and movement: Normal speech and movement present Assessment & Plan Assessment & Plan (1) Varicose veins of right lower extremity with inflammation: Comment: 04/22/2023 - right leg microphlebectomy Code(s): I83.11 - Varicose veins of right lower extremity with inflammation Plan: See below (2) Varicose veins of left lower extremity with inflammation: Comment: Venous ablation 2010 - Dr. Fernandez 02/25/2023 - left great saphenous vein Cyanoacralate ablation 09/16/2023 - left leg microphlebectomy Code(s): I83.12 - Varicose veins of left lower extremity with inflammation Plan: The patient has done extremely well with all venous treatments. Patient's may often experience postprocedure phlebitic episodes and I have discussed with the patient use of warm compresses and NSAIDS if tolerated for pain discomfort. In addition, I have discussed continued conservative measures including use of compression, leg elevation, and exercise. The patient was also given an information sheet regarding appropriate use of compression stockings and future purchases. Thank you for allowing us to care for your patient with venous disease. Coding Level of Care Code Est Pt Level 3 (46797) Diagnoses Varicose veins of right lower extremity with inflammation I83.11 Varicose veins of left lower extremity with inflammation I83.12
[2023-09-29 15:02] VITALS: BMI 27.1
== END 2023-09-29 15:21 | disposition home or self-care (01) ==
PROVIDERS: PCP Internal Medicine; Visit Provider Surgery Vascular Surgery
DX: I83.11 Varicose veins of right lower extremity with inflammation (principal); I83.12 Varicose veins of left lower extremity with inflammation
CPT/HCPCS: 99213

== ENCOUNTER → 2023-09-29 14:57 | Outpatient (BNVA) | payer OTHER, SELFPAY | PROVIDERS: PCP Internal Medicine; Visit Provider Surgery Vascular Surgery | DX: I83.11 Varicose veins of right lower extremity with inflammation (principal); I83.12 Varicose veins of left lower extremity with inflammation; Z98.890 Other specified postprocedural states ==

== ENCOUNTER 2023-10-11 07:29 | Outpatient (REF) | payer OTHER, SELFPAY ==
[2023-10-11 11:07] LABS: MANUAL DIFF FLAG NO
[2023-10-11 11:35] LABS: Basophils Percent Auto 0.8 % (0-2); Eosinophils Absolute Auto 0.1 X10*3/uL (0.0-0.4); Eosinophils Percent Auto 1.9 % (0-4); Hematocrit 42.3 % (37.0-47.0); Hemoglobin 13.5 g/dl (12.0-16.0); Imm Gran Abs Auto 0.01 X10*3/uL (0.00-0.03); Imm Gran Pct Auto 0.2 % (0.0-0.4); Lymphocytes Absolute Auto 2.1 X10*3/uL (1.2-4.9); Lymphocytes Percent Auto 43.8 % (20-40); Mean Corpuscular HGB Conc 31.9 g/dl (31.0-35.0); Mean Corpuscular Hemoglobin 29.5 pg (27.0-33.0); Mean Corpuscular Volume 92.6 fL (80.0-98.0); Mean Platelet Volume 10.8 fL (9.4-12.3); Monocytes Absolute Auto 0.4 X10*3/uL (0.1-1.2); Monocytes Percent Auto 7.8 % (2-11); Neutrophils Absolute Auto 2.2 x10*3/uL (2.0-8.3); Neutrophils Percent Auto 45.5 % (45-73); Platelet Count 208 X10*3/uL (160-400); Red Blood Count 4.57 X10*6/uL (4.20-5.50); Red Cell Distribution Width 12.7 % (11.0-16.0); White Blood Count 4.9 X10*3/uL (4.8-10.8)
[2023-10-11 12:08] LABS: Alanine Aminotransferase 17 U/L (0-31); Albumin Level 4.2 g/dL (3.5-5.0); Alkaline Phosphatase 59 U/L (39-117); Anion Gap 11 (12-20); Aspartate Amino Transferase 19 U/L (5-31); Bilirubin Total 0.4 mg/dL (0.0-1.0); Blood Urea Nitrogen 12 mg/dL (9-16); Calcium 9.4 mg/dL (8.4-10.2); Carbon Dioxide 29 mmol/L (22-29); Chloride 108 mmol/L (96-108); Cholesterol 300 mg/dL (<200); Estimated Glomerular Filt Rate > 60; Free T4 (Free Thyroxine) 0.96 ng/dL (0.71-1.85); Glucose Random 89 mg/dL (60-115); HDL Cholesterol 36 mg/dL (>40); LDL Cholesterol Calculated 225 mg/dL (<100); Potassium 3.6 mmol/L (3.3-5.1); Sodium 144 mmol/L (135-145); Thyroid Stimulating Hormone 1.72 uIU/mL (0.32-4.0); Total Protein 6.9 g/dL (6.5-8.0); Triglycerides 195 mg/dL (<150); Vitamin D 25-OH Total 32.2 ng/mL (>30)
[2023-10-11 12:17] LABS: Folate 11.2 ng/mL (> or = 4.0); Vitamin B12 456 pg/mL (200-900)
== END 2023-10-11 07:30 | disposition home or self-care (01) ==
LOC: HO.HMGCLDS 07:29
PROVIDERS: PCP Internal Medicine; Visit Provider Internal Medicine
DX: E78.00 Pure hypercholesterolemia, unspecified (principal)
CPT/HCPCS: 36415; 80053; 80061; 82306; 82607; 82746; 84439; 84443; 85025

== ENCOUNTER 2023-11-03 08:55 | Outpatient (AMB) | payer OTHER, SELFPAY ==
[2023-11-03 09:00] VITALS: BP 132/80; PULSE 74; O2SAT 96; BMI 26.8
--- NOTE | 2023-11-03 09:00 | A.OFFPC_ITS ---
Vital Signs 3 11/03/23 09:00 Height 5 ft 6 in Weight 166 lb 0.6 oz BMI 26.8 BP 132/80 Blood Pressure Location Lt brachial Position Sitting Pulse 74 Pulse Source Pulse Oximeter Pulse Oximetry (%) 96 Oxygen Delivery Method Room Air Intake Visit Reasons: Annual exam Intake Note: Patient is here today for a physical. Student Liaison Officer Required: No Allergies atorvastatin Allergy (Unknown, Verified 11/03/23 09:01) joint pain pravastatin Allergy (Unknown, Verified 11/03/23 09:01) Unknown simvastatin Allergy (Unknown, Verified 11/03/23 09:01) Unknown Medication List - Last Reconciled 11/03/23 by Leif Chu MD aspirin (Adult Aspirin Regimen) 81 mg PO DAILY ibuprofen (Motrin IB) 200 mg PO Q6H PRN xjhsobnb-dik-qcbr-FA-vit K-lut 8 mg iron-400 mcg-50 mcg (Centrum Silver Women) 1 tab PO DAILY omega-3 fatty acids 500 mg PO DAILY salmon oil-omega-3 fatty acids 1,000-210 mg caps PO sumatriptan succinate (Imitrex) 100 mg PO .QD PRN Tobacco use date assessed: 11/03/23 Fall risk assessment: No Falls in past year Last assessed Fall Risk: 11/03/23 Dental Screening Dental Screen Date: 11/03/23 Did you have a dental visit in the last 12 months?: Yes Did you have a dental problem in the last 6 months where you did not have access to dental care?: No Was dental information given to patient?: Patient has dentist HPI Annual exam 2 HPI0 Details 62-year-old female with a history of hyp ercholesterolemia migraine peripheral vascular disease coming in for physical exam last seen in September 2022. Patient's Cologuard negative September 2021 up-to-date mammogram up-to-date July 2023. Patient continues to follow-up with vascular surgeon seen in September 2023 history of having right leg microphlebectomy April 2023 venous ablation 2010 cryoablation January 2023 left leg microphlebectomy September 2023 patient has hypercholesterolemia and can not tolerate statins R chin erythema rash PFSH Medical History Exposure to blood or body fluid Low back pain Annual physical exam COVID-19 virus infection Colonoscopy refused Anxiety Vitamin D deficiency Hypercholesterolemia Migraine Surgical History History of varicose veins History of detached retina repair History of eye surgery Family History Father No problems noted. Mother Stroke Hypertension Paternal Uncle Myocardial infarction Family/Other Depression with anxiety Daughter Substance abuse Social History Housing: House Alcohol intake: never Patient Tobacco Use Status: Former Tobacco user Years Smoked: teenager e-Cigarette/Vaping Use: Never Used Second Hand Smoke Exposure: Yes service: No Current occupational status: employed Cognitive needs: No Hearing needs: No Vision needs: No Female Reproductive History Menstrual Age of Menarche: 12 Questionnaire PHQ-9 Over the last 2 weeks, how often have you been bothered by any of the following problems? 1. Little interest or pleasure in doing things: not at all 2. Feeling down, depressed, or hopeless: not at all 3. Trouble falling or staying asleep, or sleeping too much: not at all 4. Feeling tired or having little energy: not at all 5. Poor appetite or overeating: not at all 6. Feeling bad about yourself - or that you are a failure or have let yourself or your family down: not at all 7. Trouble concentrating on things, such as reading the newspaper or watching television: not at all 8. Moving or speaking so slowly that other people could have noticed. Or the opposite - being so fidgety or restless that you have been moving around a lot more than usual: not at all 9. Thoughts that you would be better off or of hurting yourself in some way: not at all Total score: 0 Depression Screening Interpretation: Negative Depression Screening Done: Yes 56045 - PHQ-9 Billing: Yes Source: Developed by Drs. Amol Murray, Nelly Garcia, Narendra Melchor and colleagues, with an educational damaso from [employer]. Thrive Questionnaire Date Thrive assessed: 11/03/23 I am a: Patient What is your living situation today?: I have a steady place to live Within the past 12 months, did the food you bought not last and you didn't have the money to get more?: Never true Within the past 12 months, did you worry whether your food would run out before you got money to buy more?: Never true Do you have trouble paying for medicines?: No Do you have trouble getting transportation to medical appointments?: No Do you have trouble paying your heating and electricity bill?: No Do you have trouble taking care of your child, family member or friend?: No Do you have trouble with day-to-day activities such as bathing, preparing meals, shopping, managing finances, etc.?: No Are you currently unemployed and looking for a job?: No Are you interested in more education?: No Please select the resources that you would like help with: None Currently or been in a relationship where the following occur: no concerns reported THRIVE Score: 0 AUDIT C Alcohol Use Questionnaire (AUDIT-C) 1. How often do you have a drink containing alcohol?: Never 3. How often do you have six or more drinks on one occasion?: Never Total Score: 0 NITIN-7 AMB Questionnaire NITIN-7 Date NITIN - 7 assessed: 11/03/23 Feeling nervous, anxious, or on edge: 0 = Not at all Not being able to stop or control worryin = Not at all Worrying too much about different things: 0 = Not at all Trouble relaxin = Not at all Being so restless that it is hard to sit still: 0 = Not at all Becoming easily annoyed or irritable: 0 = Not at all Feeling afraid as if something awful might happen: 0 = Not at all Total NITIN-7 score (0-4 normal; 5-9 mild; 10-14 moderate; 15-21 severe): 0 Source: Developed by Drs. Amol Murray, Nelly Garcia, Narendra Melchor and colleagues, with an educational damaso from [employer]. NITIN-7 Assessment Billing NITIN-7 Assessment Tool: NITIN-7 Assessment 44950 Review of Systems Const Denies poor appetite and Denies weakness Eyes Denies no additional complaints ENT Reports Normal hearing present, Denies dizziness, Denies nasal congestion, Denies tinnitus and Denies sore throat Card Denies chest pain, Denies syncope, Denies rapid heart rate and Denies dyspnea Resp Denies cough and Denies dyspnea GI Denies change in stool character, Reports constipation, Denies diarrhea, Denies nausea and Denies vomiting Denies urinary frequency, Denies difficulty voiding and Denies dysuria Neuro Reports Normal hearing present, Denies confusion, Denies dizziness, Denies syncope and Denies weakness Psych Denies confusion Physical exam (Primary Care) Vital Signs: Last Vital Signs Pulse 74 11/03/23 09:00 BP 132/80 11/03/23 09:00 Pulse Ox 96 11/03/23 09:00 Oxygen Delivery Method Room Air 11/03/23 09:00 BMI result Body Mass Index 26.8 Tobacco/Smoking Status: Tobacco use Status Tobacco use date assessed 11/03/23 11/03/23 09:02 Patient Tobacco Use Status Former Tobacco user 11/03/23 09:02 e-Cigarette/Vaping Use Never Used 11/03/23 09:02 PHQ-9: PHQ-9 Score PHQ-9: Total score 0 11/03/23 09:02 Depression Screening Interpretation: Negative Thrive Assessment: Date of Thrive Assessment Date Thrive assessed 11/03/23 11/03/23 09:02 Currently or been in a relationship where the following occur: no concerns reported Const General: No confusion Orientation/consciousness: No confusion HENMT Head: Yes normocephalic Head images: 2 1. 2 cm erythmatous flat rash no scaly Ears: external ears normal and TM's normal bilaterally Face and sinus: Yes normal facial exam Mouth: moist mucous membranes Throat: Yes tonsils normal Eyes Conjunctivae: conjunctivae normal Pupils: Equal, round and reactive pupils present and Pupil accommodation reflex normal Direct Ophthalmoscopy: normal light reflex Neck Neck: No lymphadenopathy Thyroid: Thyroid normal Chest Chest palpation & inspection: normal inspection of the chest Resp Effort & Inspection: normal respiratory effort and no audible wheezes Auscultation: clear to auscultation bilaterally, no crackles, no wheezes and lung sounds not diminished Cardio Rate: regular rate Rhythm: regular rhythm Peripheral pulses: radial pulses present and dorsalis pedis present GI Palpation (GI): no masses Auscultation: normal bowel sounds and normoactive bowel sounds Rectal Exam - Female: deferred Skin General skin exam: no rashes or lesions noted Rashes: no rashes Neuro General: No confusion Cranial nerves: Yes Equal, round and reactive pupils present and Yes Normal hearing present Cognition (Neuro): normal cognition Gait exam (Neuro): Normal gait present Motor exam (neuro): 5/5 motor strength present throughout Deep tendon reflexes (DTR's): Right brachioradialis reflex intensity grade: 2+, Left brachioradialis reflex intensity grade: 2+, Right patellar reflex intensity grade: 2+ and Left patellar reflex intensity grade: 2+ Extrem Other: Hammertoe noted on the right 2nd toe bilateral General: No edema Assessment and Plan Assessment & Plan (1) Annual physical exam: Code(s): Z00.00 - Encounter for general adult medical examination without abnormal findings (2) Hypercholesterolemia: Code(s): E78.00 - Pure hypercholesterolemia, unspecified Plan: Avoid fried foods, chicken skin, eggs, butter margarine, pastries and meat. Be it pork or beef they have a lot of cholesterol patient can not tolerate statins LDL goal of less than 130 and triglyceride of less than 150. Patient is offered Zetia, and did discuss about injectables. (3) Peripheral vascular disease: Code(s): I73.9 - Peripheral vascular disease, unspecified Plan: When sitting down elevate the legs, exercise, and support stockings patient has had multiple procedures and continues to follow-up with vascular surgeon (4) Migraine: Code(s): G43.909 - Migraine, unspecified, not intractable, without status migrainosus Qualifiers: Migraine type: without aura Status migrainosus presence: without status migrainosus Intractability: not intractable Qualified Code(s): G43.009 - Migraine without aura, not intractable, without status migrainosus Plan: Continue with migraine medication as needed drink enough fluids, eat healthy and keep active (5) Eczema of face: Code(s): L30.9 - Dermatitis, unspecified (6) Hammer toe of right foot: Code(s): M20.41 - Other hammer toe(s) (acquired), right foot (7) Plantar fasciitis of right foot: Code(s): M72.2 - Plantar fascial fibromatosis Orders: Orders 2 Lipid Panel 3 Months E78.00 - Pure hypercholesterolemia, unspecified Comprehensive Met. Panel 3 Months E78.00 - Pure hypercholesterolemia, unspecified Referrals 2 Podiatry Referral M20.41 - Other hammer toe(s) (acquired), right foot Medications: New 2 alclometasone 0.05% 1 appl topical BID PRN 45 grams 0RF itching L30.9 - Dermatitis, unspecified ezetimibe (Zetia) 10 mg PO DAILY 30 tabs 4RF E78.00 - Pure hypercholesterolemia, unspecified Refilled 2 sumatriptan succinate (Imitrex) do not exceed 2 doses per 24 hrs 100 mg PO .QD PRN 10 tabs 12RF migraine headache G43.009 - Migraine without aura, not intractable, without status migrainosus Coding Level of Care Code Est Pt Prev Care 40-64y(94185) Diagnoses Annual physical exam Z00.00 Hypercholesterolemia E78.00 Peripheral vascular disease I73.9 Migraine without aura and without status migrainosus, not intractable G43.009 Migraine type: without aura Status migrainosus presence: without status migrainosus Intractability: not intractable Eczema of face L30.9 Hammer toe of right foot M20.41 Plantar fasciitis of right foot M72.2 Additional Codes NITIN-7 Assessment Billing - NITIN-7 Assessment Tool: NITIN-7 Assessment 71221 ([id number])
== END 2023-11-03 09:42 | disposition home or self-care (01) ==
PROVIDERS: Visit Provider Internal Medicine
DX: Z00.00 Encounter for general adult medical examination without abnormal findings (principal); E78.00 Pure hypercholesterolemia, unspecified; I73.9 Peripheral vascular disease, unspecified; G43.009 Migraine without aura, not intractable, without status migrainosus; L30.9 Dermatitis, unspecified; M20.41 Other hammer toe(s) (acquired), right foot; M72.2 Plantar fascial fibromatosis
CPT/HCPCS: 99396

== ENCOUNTER 2024-03-23 06:30 | Outpatient (REF) | payer OTHER, SELFPAY ==
[2024-03-23 10:57] LABS: Alanine Aminotransferase 35 U/L (0-31); Albumin Level 4.1 g/dL (3.5-5.0); Alkaline Phosphatase 51 U/L (39-117); Anion Gap 10 (12-20); Aspartate Amino Transferase 31 U/L (5-31); Bilirubin Total 0.4 mg/dL (0.0-1.0); Blood Urea Nitrogen 18 mg/dL (9-16); Calcium 9.1 mg/dL (8.4-10.2); Carbon Dioxide 29 mmol/L (22-29); Chloride 109 mmol/L (96-108); Cholesterol 233 mg/dL (<200); Estimated Glomerular Filt Rate > 60; Glucose Random 91 mg/dL (60-115); HDL Cholesterol 39 mg/dL (>40); LDL Cholesterol Calculated 173 mg/dL (<100); Potassium 3.8 mmol/L (3.3-5.1); Sodium 144 mmol/L (135-145); Total Protein 6.7 g/dL (6.5-8.0); Triglycerides 107 mg/dL (<150)
== END 2024-03-23 06:31 | disposition home or self-care (01) ==
LOC: HO.HMGCLDS 06:30
PROVIDERS: PCP Internal Medicine; Visit Provider Internal Medicine
DX: E78.00 Pure hypercholesterolemia, unspecified (principal)
CPT/HCPCS: 36415; 80053; 80061

== ENCOUNTER 2024-03-27 08:22 | Outpatient (AMB) | payer OTHER, SELFPAY ==
[2024-03-27 08:26] VITALS: BP 168/98; PULSE 90; O2SAT 97; BMI 26.8
--- NOTE | 2024-03-27 08:26 | MHC.PC.OV ---
Vital Signs 03/27/24 08:26 Height 5 ft 6 in Weight 166 lb BMI 26.8 BP 168/98 H Blood Pressure Location Lt brachial Position Sitting Pulse 90 Pulse Source Pulse Oximeter Pulse Oximetry (%) 97 Oxygen Delivery Method Room Air Intake Visit Reasons: cholesterol Allergies atorvastatin Allergy (Unknown, Verified 03/27/24 08:27) joint pain pravastatin Allergy (Unknown, Verified 03/27/24 08:27) Unknown simvastatin Allergy (Unknown, Verified 03/27/24 08:27) Unknown Tobacco use date assessed: 11/03/23 Fall risk assessment: No Falls in past year Last assessed Fall Risk: 03/27/24 Dental Screening Dental Screen Date: 11/03/23 HPI cholesterol HPI Details 63-year-old overweight female with a history of hypercholesterolemia migraines peripheral vascular disease coming in for follow-up. Patient was last seen in October for physical exam. Patient had Cologuard testing in 09/20/2021, mammogram is up-to-date. 1 day sneezing coughing hoarsness, coughing, , sore throat, , nobody at home is sick. [patient is housekeeping and nof fevers, , no chest pain , PFSH Medical History (Updated 03/27/24 @ 08:43 by Leif Chu MD) Colon cancer screening Exposure to blood or body fluid Low back pain Annual physical exam COVID-19 virus infection Colonoscopy refused Anxiety Vitamin D deficiency Hypercholesterolemia Migraine Surgical History History of varicose veins History of detached retina repair History of eye surgery Family History Father No problems noted. Mother Stroke Hypertension Paternal Uncle Myocardial infarction Family/Other Depression with anxiety Daughter Substance abuse Social History Housing: House Alcohol intake: never Patient Tobacco Use Status: Former Tobacco user Tobacco use type: Cigarette Years Smoked: teenager e-Cigarette/Vaping Use: Never Used Second Hand Smoke Exposure: Yes service: No Current occupational status: employed Cognitive needs: No Hearing needs: No Vision needs: Yes Female Reproductive History Menstrual Age of Menarche: 12 Questionnaire PHQ-9 Over the last 2 weeks, how often have you been bothered by any of the following problems? 1. Little interest or pleasure in doing things: not at all 2. Feeling down, depressed, or hopeless: not at all 3. Trouble falling or staying asleep, or sleeping too much: not at all 4. Feeling tired or having little energy: not at all 5. Poor appetite or overeating: not at all 6. Feeling bad about yourself - or that you are a failure or have let yourself or your family down: not at all 7. Trouble concentrating on things, such as reading the newspaper or watching television: not at all 8. Moving or speaking so slowly that other people could have noticed. Or the opposite - being so fidgety or restless that you have been moving around a lot more than usual: not at all 9. Thoughts that you would be better off or of hurting yourself in some way: not at all Total score: 0 Depression Screening Interpretation: Negative Depression Screening Done: Yes 33116 - PHQ-9 Billing: Yes Source: Developed by Drs. Amol Murray, Nelly Garcia, Narendra Melchor and colleagues, with an educational damaso from [employer]. Thrive Questionnaire Date Thrive assessed: 11/03/23 AUDIT C Alcohol Use Questionnaire (AUDIT-C) 1. How often do you have a drink containing alcohol?: Never 3. How often do you have six or more drinks on one occasion?: Never Total Score: 0 NITIN-7 AMB Questionnaire NITIN-7 Date NITIN - 7 assessed: 11/03/23 Source: Developed by Drs. Amol Murray, Narendra Guthrie and colleagues, with an educational damaso from [employer]. Physical exam (Primary Care) Vital Signs: Last Vital Signs Pulse 90 03/27/24 08:26 BP 168/98 H 03/27/24 08:26 Pulse Ox 97 03/27/24 08:26 Oxygen Delivery Method Room Air 03/27/24 08:26 BMI result Body Mass Index 26.8 Tobacco/Smoking Status: Tobacco use Status Tobacco use date assessed 11/03/23 03/27/24 08:32 Patient Tobacco Use Status Former Tobacco user 03/27/24 08:32 Tobacco use type Cigarette 03/27/24 08:32 e-Cigarette/Vaping Use Never Used 03/27/24 08:32 PHQ-9: PHQ-9 Score PHQ-9: Total score 0 03/27/24 08:35 Depression Screening Interpretation: Negative Thrive Assessment: Date of Thrive Assessment Date Thrive assessed 11/03/23 03/27/24 08:32 Const General: alert; No acute distress Eyes Conjunctivae: conjunctivae normal Resp Auscultation: clear to auscultation bilaterally Cardio Rate: regular rate Rhythm: regular rhythm GI Inspection: Yes normal to inspection Extrem General: Yes normal to inspection and No edema Assessment and Plan Assessment & Plan (1) Hypercholesterolemia: Code(s): E78.00 - Pure hypercholesterolemia, unspecified Plan: Avoid fried foods, chicken skin, eggs, butter margarine, pastries and meat. Be it pork or beef they have a lot of cholesterol LDL goal of less than 130 and triglyceride of less than 150. Patient on Zetia presently (2) LFT elevation: Code(s): R79.89 - Other specified abnormal findings of blood chemistry Plan: Will order for an ultrasound of the liver as well as repeat testing with hepatitis profile (3) Migraine: Code(s): G43.909 - Migraine, unspecified, not intractable, without status migrainosus Qualifiers: Intractability: not intractable Migraine type: without aura Status migrainosus presence: without status migrainosus Qualified Code(s): G43.009 - Migraine without aura, not intractable, without status migrainosus Plan: Continue with sumatriptan as needed. Patient is advised to eat healthy, keep well hydrated, keep active and have adequate sleep. (4) Viral respiratory illness: Code(s): J98.8 - Other specified respiratory disorders; B97.89 - Other viral agents as the cause of diseases classified elsewhere Plan: For the sore throat can take Cepacol lozenges, discussed about Delsym to help with dry cough so she can rest and advised to increase oral fluids. Patient also can take Tylenol for chills and fever. Viral testing requested. Orders: Orders Hepatitis B,C Profile Today R79.89 - Other specified abnormal findings of blood chemistry SARS-CoV2/FLU/RSV Today B97.89 - Other viral agents as the cause of diseases classified elsewhere, J98.8 - Other specified respiratory disorders Liver Panel Today R79.89 - Other specified abnormal findings of blood chemistry US abdomen complete Today R7.89 - Other specified abnormal findings of blood chemistry Coding Level of Care Code Est Pt Level 4 (63378) Diagnoses Hypercholesterolemia E78.00 LFT elevation R79.89 Migraine without aura and without status migrainosus, not intractable G43.009 Intractability: not intractable Migraine type: without aura Status migrainosus presence: without status migrainosus Viral respiratory illness J98.8; B97.89
== END 2024-03-27 08:50 | disposition home or self-care (01) ==
PROVIDERS: PCP Internal Medicine; Visit Provider Internal Medicine
DX: E78.00 Pure hypercholesterolemia, unspecified (principal); R79.89 Other specified abnormal findings of blood chemistry; G43.009 Migraine without aura, not intractable, without status migrainosus; J98.8 Other specified respiratory disorders; B97.89 Other viral agents as the cause of diseases classified elsewhere
CPT/HCPCS: 99214

== ENCOUNTER 2024-03-27 09:00 | Outpatient (REF) | payer OTHER, SELFPAY ==
[2024-03-27 10:36] LABS: Influenza A PCR NEGATIVE (Negative); Influenza B PCR NEGATIVE (Negative); Resp Syncy Virus RNA Qual PCR NEGATIVE (Negative); SARS COV2 PCR INHOUSE NEGATIVE (Negative)
[2024-03-27 10:41] LABS: Alanine Aminotransferase 32 U/L (0-31); Albumin Level 4.5 g/dL (3.5-5.0); Alkaline Phosphatase 54 U/L (39-117); Aspartate Amino Transferase 27 U/L (5-31); Bilirubin Direct 0.1 mg/dL (0.0-0.5); Bilirubin Total 0.4 mg/dL (0.0-1.0); Total Protein 7.4 g/dL (6.5-8.0)
[2024-03-27 11:04] LABS: HBS Num1 123.47 mIU/mL (0-7.99); HBc Num1 0.12 S/CO (0.00-0.79); Hepatitis B Core Antibody Nonreactive (Nonreactive); Hepatitis B Surface Antigen Negative (Negative); ~HepC Num1 0.12 S/CO (0.00-0.79); ~Hepatitis B Surface Antibody REACTIVE (Nonreactive); ~Hepatitis C Antibody Nonreactive (Nonreactive)
== END 2024-03-27 09:01 | disposition home or self-care (01) ==
LOC: HO.LAB 09:00
PROVIDERS: PCP Internal Medicine; Visit Provider Internal Medicine
DX: R79.89 Other specified abnormal findings of blood chemistry (principal); J98.8 Other specified respiratory disorders; B97.89 Other viral agents as the cause of diseases classified elsewhere
CPT/HCPCS: 0241U; 80076; 86704; 86706; 86803; 87340

== ENCOUNTER 2024-04-10 08:21 | Outpatient (REF) | payer OTHER, SELFPAY ==
--- NOTE | ~2024-04-10 | US_ITS ---
EXAMINATION: US ABDOMEN COMPLETE CLINICAL INFORMATION: Other specified abnormal findings of blood chemistry. COMPARISON: Ultrasound kidneys and bladder 12/14/2016. X-ray abdomen KUB 08/07/2016. CT abdomen and pelvis 11/06/2014. TECHNIQUE: Real-time imaging of the abdominal viscera. FINDINGS: PANCREAS: The visualized pancreas appears unremarkable but the pancreatic tail is obscured by bowel gas. ABDOMINAL AORTA: The proximal, mid, and distal segments are normal in caliber. INFERIOR VENA CAVA: Visualized portions are normal. LIVER: Normal. The liver is normal in size. The liver contour is normal. Parenchymal echogenicity is normal. No focal hepatic lesion. There is no intrahepatic biliary duct dilatation seen. GALLBLADDER: Normal. The gallbladder is physiologically distended without evidence of stones, sludge, polyps, wall thickening or pericholecystic fluid. COMMON BILE DUCT: Normal in caliber measuring 0.7 cm in diameter. RIGHT KIDNEY: Normal. No hydronephrosis. No renal calculi or focal parenchymal lesions. The kidney measures 10.3 cm in maximum dimension. LEFT KIDNEY: Normal. No hydronephrosis. No renal calculi or focal parenchymal lesions. The kidney measures 10.6 cm in maximum dimension. SPLEEN: The spleen measures 8.5 cm in maximum dimension. FREE FLUID: None. US/US abdomen complete IMPRESSION: No significant abnormality is detected. Electronically signed by: Yevgeniy Salas MD 04/14/2024 12:35 PM EDT
== END 2024-04-10 08:22 | disposition home or self-care (01) ==
LOC: HO.US 08:21
PROVIDERS: PCP Internal Medicine; Visit Provider Internal Medicine
DX: R79.89 Other specified abnormal findings of blood chemistry (principal)
CPT/HCPCS: 76700

== ENCOUNTER 2024-05-04 07:45 | Outpatient (AMB) | payer OTHER, SELFPAY ==
[2024-05-04 08:01] VITALS: BP 144/72; PULSE 67; O2SAT 98; BMI 26.8
--- NOTE | 2024-05-04 08:01 | A.OFFPC_ITS ---
Vital Signs 05/04/24 08:01 Height 5 ft 6 in Weight 166 lb 0.2 oz BMI 26.8 BP 144/72 H Blood Pressure Location Lt brachial Position Sitting Pulse 67 Pulse Source Pulse Oximeter Pulse Oximetry (%) 98 Oxygen Delivery Method Room Air Intake Visit Reasons: 1 Month F/U Acetylene Torch Burner Required: No Allergies atorvastatin Allergy (Unknown, Verified 05/04/24 08:03) joint pain pravastatin Allergy (Unknown, Verified 05/04/24 08:03) Unknown simvastatin Allergy (Unknown, Verified 05/04/24 08:03) Unknown Medication List - Last Reconciled 05/04/24 by Yenni Spencer PA-C alclometasone 0.05% 1 appl topical BID PRN aspirin (Adult Aspirin Regimen) 81 mg PO DAILY ezetimibe (Zetia) 10 mg PO DAILY ibuprofen (Motrin IB) 200 mg PO Q6H PRN durhlmki-ioa-okxm-FA-vit K-lut 8 mg iron-400 mcg-50 mcg (Centrum Silver Women) 1 tab PO DAILY omega-3 fatty acids 500 mg PO DAILY salmon oil-omega-3 fatty acids 1,000-210 mg caps PO sumatriptan succinate (Imitrex) 100 mg PO .QD PRN Tobacco use date assessed: 11/03/23 Dental Screening Dental Screen Date: 11/03/23 HPI 1 Month F/U HPI Details 63-year-old overweight female with a his tory of hypercholesterolemia migraines peripheral vascular disease coming in for follow-up. Last seen by Dr. Chu March 2024. Patient states she had 1 episode of palpitations 2 weeks ago and believes it to be related to ezetimibe in discontinue that medication at that time. She has been taking ezetimibe for 3 months when this episode occurred. She has not use alcohol and we will occasionally take Tylenol when she has headaches or when she is sick. She does regularly check her blood pressure at home but is unsure of the values. [facility] Medical History (Updated 05/04/24 @ 08:27 by Yenni Spencer PA-C) Colon cancer screening Exposure to blood or body fluid Low back pain Annual physical exam COVID-19 virus infection Colonoscopy refused Anxiety Vitamin D deficiency Hypercholesterolemia Migraine Surgical History History of varicose veins History of detached retina repair History of eye surgery Family History Father No problems noted. Mother Stroke Hypertension Paternal Uncle Myocardial infarction Family/Other Depression with anxiety Daughter Substance abuse Social History Housing: House Alcohol intake: never Patient Tobacco Use Status: Former Tobacco user Tobacco use type: Cigarette Years Smoked: teenager e-Cigarette/Vaping Use: Never Used Second Hand Smoke Exposure: Yes service: No Current occupational status: employed Cognitive needs: No Hearing needs: No Vision needs: Yes Female Reproductive History Menstrual Age of Menarche: 12 Questionnaire Thrive Questionnaire Date Thrive assessed: 11/03/23 Are you currently unemployed and looking for a job?: No NITIN-7 AMB Questionnaire NITIN-7 Date NITIN - 7 assessed: 11/03/23 Source: Developed by Drs. Amol Murray, Nelly Garcia, Narendra Melchor and colleagues, with an educational damaso from [employer]. Review of Systems Const Denies body aches, Denies chills, Denies fever(s), Denies headache(s) and Denies poor appetite Eyes Reports no additional complaints ENT Denies dysphagia, Denies dizziness, Denies headache(s) and Denies odynophagia Card Denies chest pain, Denies syncope, Denies edema, Denies irregular heart rhythm, Denies lightheadedness and Denies dyspnea Resp Denies cough and Denies dyspnea GI Denies abdominal pain, Denies constipation, Denies dysphagia, Denies diarrhea, Denies nausea, Denies odynophagia and Denies vomiting Reports no additional complaints Musc Reports no additional complaints and Denies abnormal gait Skin/Breast Reports system reviewed and no additional complaints, except as documented Neuro Denies abnormal gait, Denies dizziness, Denies syncope and Denies headache(s) Psych Reports no additional complaints Physical exam (Primary Care) Tobacco/Smoking Status: Tobacco use Status Tobacco use date assessed 11/03/23 03/27/24 08:32 Patient Tobacco Use Status Former Tobacco user 03/27/24 08:32 Tobacco use type Cigarette 03/27/24 08:32 e-Cigarette/Vaping Use Never Used 03/27/24 08:32 Thrive Assessment: Date of Thrive Assessment Date Thrive assessed 11/03/23 03/27/24 08:32 Const General: cooperative, healthy appearing, comfortable and no acute distress Orientation/consciousness: patient oriented x3 HENMT Head: Yes normocephalic Ears: hearing grossly normal bilaterally General nose exam: Normal external nose present Eyes General: appearance normal, both eyes and all related structures Conjunctivae: conjunctivae normal Neck Neck: Yes full ROM and Yes no lymphadenopathy Resp Effort & Inspection: normal respiratory effort Auscultation: clear to auscultation bilaterally, no crackles, no rales, no rhonchi and no wheezes Cardio Rate: regular rate Rhythm: regular rhythm Skin General skin exam: no rashes or lesions noted Neuro General: patient oriented x3 Gait exam (Neuro): Normal gait present Extrem General: Yes normal to inspection, Yes full ROM and No edema Psych Affect: normal affect Attitude: cooperative Insight: Good insight present (Psych) Judgement: Good judgement present (Psych) Coding Level of Care Code Est Pt Level 4 (72335) Diagnoses LFT elevation R79.89 Peripheral vascular disease I73.9 Hypercholesterolemia E78.00 Elevated blood pressure reading without diagnosis of hypertension R03.0 Assessment & Plan Assessment & Plan (1) LFT elevation: Code(s): R79.89 - Other specified abnormal findings of blood chemistry Category: Medical Plan: Liver ultrasound and hepatitis panel negative for acute abnormality. Hepatitis panel showing immunity to hepatitis-B through vaccination. LFT elevation could be related to use of ezetimibe we will repeat panel in 3 months. (2) Peripheral vascular disease: Code(s): I73.9 - Peripheral vascular disease, unspecified Category: Medical Plan: Encouraged healthy diet and regular exercise. (3) Hypercholesterolemia: Code(s): E78.00 - Pure hypercholesterolemia, unspecified Category: Medical Plan: Avoid foods that are high in cholesterol such as red meat, fried foods, eggs and baked goods. Triglyceride goal of less than 150 and LDL goal of less than 130. Advised patient to resume ezetimibe as it is likely not the cause of her palpitations however if she begins taking and has palpitations again to discontinue the medication. We will repeat cholesterol labs in 3 months. (4) Elevated blood pressure reading without diagnosis of hypertension: Code(s): R03.0 - Elevated blood-pressure reading, without diagnosis of hypertension Category: Medical Plan: Blood pressure elevated on exam advised to take blood pressure and keep a log of pressures and bring to next appointment. Plan This note was constructed using voice recognition software. While every effort has been made to ensure accuracy and client success director, still areas may have been included sometimes these areas may affect the content or meeting of the given symptoms. Total time spent caring for the patient today was 30 minutes. This includes time spent before the visit reviewing the chart, time spent during the visit, and time spent after the visit and documentation. Orders: Orders Liver Panel 3 Months R79.89 - Other specified abnormal findings of blood chemistry Lipid Panel 3 Months Z00.00 - Encounter for general adult medical examination without abnormal findings Medications: On Hold ezetimibe (Zetia) Hold Comment: not taking 10 mg PO DAILY 30 tabs 4RF E78.00 - Pure hypercholesterolemia, unspecified
== END 2024-05-04 08:25 | disposition home or self-care (01) ==
PROVIDERS: PCP Internal Medicine
DX: R79.89 Other specified abnormal findings of blood chemistry (principal); I73.9 Peripheral vascular disease, unspecified; E78.00 Pure hypercholesterolemia, unspecified; R03.0 Elevated blood-pressure reading, without diagnosis of hypertension

== ENCOUNTER → 2024-05-04 07:45 | Outpatient (BNVA) | payer OTHER, SELFPAY | PROVIDERS: PCP Internal Medicine ==

== ENCOUNTER 2024-06-28 03:24 | Emergency (ER) | payer OTHER, SELFPAY ==
[2024-06-28 03:26] VITALS: BP 171/78; PULSE 79; RESP 18; TEMP 36.6; O2SAT 99; BMI 27.1
--- NOTE | 2024-06-28 05:05 | ED_ITS ---
HPI - Extremity Problem General Chief complaint: Extremity Problem Stated complaint: L foot pain Time Seen by Provider: 06/28/24 04:58 Source: patient Mode of arrival: ambulatory Limitations: no limitations History of Present Illness ED Provider: HPI Narrative: Patient been complaining of pain in the dorsum of the left foot since last unable to sleep no history of neuropathy no history of paresthesia patient is nondiabetic Related Data Home Medications ?Medication ?Instructions ?Recorded ?Confirmed aspirin 81 mg tablet,delayed 81 mg PO DAILY 07/18/20 05/04/24 release (Adult Aspirin Regimen) ibuprofen 200 mg tablet (Motrin IB) 200 mg PO Q6H PRN 08/20/20 05/04/24 omega-3 fatty acids 500 mg PO DAILY 10/29/22 05/04/24 fqogbsdr-sznf-tniz 8 mg-folic 400 1 tab PO DAILY 11/03/23 05/04/24 mcg-K 50 mcg-lutein 300 mcg tablet (Centrum Silver Women) salmon oil 1,000 mg-omega-3 fatty cap PO 11/03/23 05/04/24 acids 210 mg capsule Previous Rx's ?Medication ?Instructions ?Recorded alclometasone 0.05 % topical cream 1 appl topical BID PRN itching #45 11/03/23 grams sumatriptan succinate 100 mg 100 mg PO .QD PRN migraine 11/03/23 tablet (Imitrex) headache #10 tabs ezetimibe 10 mg tablet (Zetia) 10 mg PO DAILY #30 tabs 02/24/24 lidocaine 4 % topical patch 1 patch topical DAILY PRN pain #10 06/28/24 (Salonpas (lidocaine)) ea Allergies Allergy/AdvReac Type Severity Reaction Status Date / Time atorvastatin Allergy Unknown joint pain Verified 06/28/24 03:28 pravastatin Allergy Unknown Unknown Verified 06/28/24 03:28 simvastatin Allergy Unknown Unknown Verified 06/28/24 03:28 Review of Systems Review of Systems: Yes all other systems are reviewed and are negative PMFSH Past Medical History Medical History Colon cancer screening Exposure to blood or body fluid Low back pain Annual physical exam COVID-19 virus infection Colonoscopy refused Anxiety Vitamin D deficiency Hypercholesterolemia Migraine Surgical History History of varicose veins History of detached retina repair History of eye surgery Family History Family History Father No problems noted. Mother Stroke Hypertension Paternal Uncle Myocardial infarction Family/Other Depression with anxiety Daughter Substance abuse Social History Social History Housing: House Alcohol intake: never Patient Tobacco Use Status: Former Tobacco user Tobacco use type: Cigarette Years Smoked: teenager e-Cigarette/Vaping Use: Never Used Second Hand Smoke Exposure: Yes Advance Directives: No Advance Directives Information Provided: Yes service: No Current occupational status: employed Cognitive needs: No Hearing needs: No Vision needs: Yes Physical Exam Vital Signs: Vital Signs: Last Vital Signs Temp 97.8 F 06/28/24 05:19 Pulse 79 06/28/24 05:19 Resp 18 06/28/24 05:19 BP 171/78 H 06/28/24 05:19 Pulse Ox 99 06/28/24 05:19 O2 Del Method Room Air 06/28/24 05:19 BMI result Body Mass Index 27.1 Appearance: Alert. Oriented X3. No acute distress. Eyes: PERRLA, No Nystagmus ENT: Pharynx normal. Oral Mucosa moist Neck: Normal inspection. Neck supple. CVS: Normal heart rate and rhythm. Pulses normal. Respiratory: No respiratory distress. Equal air entry bilateral, no wheezing/rales/rhonchi Abdomen: Soft and nontender. Bowel sounds are present, no mass palpable, no CVA tenderness Skin: Skin warm and dry. Normal skin color. Normal skin turgor. Extremities: No lower extremity edema. No calf tenderness dorsalis pedis 2+ color normal good range of movement Neuro: Oriented X 3. No motor deficit. No sensory deficit.No cerebellar signs , cranial nerves II-XII intact Medications Administered Discontinued Medications Generic Name Dose Route Start Last Admin Trade Name Freq PRN Reason Stop Dose Admin Lidocaine 1 patch 06/28/24 05:05 06/28/24 05:18 Lidocaine 4 % Patch Adh..Patch TRANSDERMA 06/28/24 05:06 1 patch ONCE ONE Administration Protocol Medical Decision Making Medical Decision Making MDM Narrative: Patient with pain in the left dorsum of the foot etiology not clear likely paresthesia neurovascular intact will apply lidocaine patch Discharge Plan Discharge Clinical Impression: Acute pain of left foot Patient Disposition: Home, Self-Care Instructions: Musculoskeletal Pain (ED) Additional Instructions: Use the Lidoderm patch for the pain daily as needed Follow with your PCP Prescriptions: New lidocaine [Salonpas (lidocaine)] 4 % adhesive patch,medicated 1 patch topical DAILY PRN (Reason: pain) Qty: 10 0RF No Action ezetimibe [Zetia] 10 mg tablet 10 mg PO DAILY Qty: 30 4RF ibuprofen [Motrin IB] 200 mg tablet 200 mg PO Q6H PRN aspirin [Adult Aspirin Regimen] 81 mg tablet,delayed release (DR/EC) 81 mg PO DAILY omega-3 fatty acids Capsule 500 mg PO DAILY salmon oil-omega-3 fatty acids 1,000-210 mg capsule PO Centrum Silver Women 8 mg iron-400 mcg-50 mcg tablet 1 tab PO DAILY sumatriptan succinate [Imitrex] 100 mg tablet 100 mg PO .QD PRN (Reason: migraine headache) Qty: 10 12RF Rx Instructions: do not exceed 2 doses per 24 hrs alclometasone 0.05 % cream 1 appl topical BID PRN (Reason: itching) Qty: 45 0RF Interventions: ED Discharge Assessment Last Done: 06/28/24 05:19 Discharge Date/Time: 06/28/24 05:19 Print Language: Bengali
[2024-06-28] MEDS: Lidocaine 4 % Patch ADH..PATCH 1 PATCH TRANSDERMA (05:18)
[2024-06-28 05:19] VITALS: BP 171/78; PULSE 79; RESP 18; TEMP 36.6; O2SAT 99
== END 2024-06-28 05:19 | disposition home or self-care (01) ==
PROVIDERS: Emergency Provider Internal Medicine; PCP Internal Medicine
DX: M79.672 Pain in left foot (principal)
CPT/HCPCS: 99282; 99283

== ENCOUNTER 2024-07-10 15:31 | Outpatient (AMB) | payer OTHER, SELFPAY ==
--- NOTE | 2024-07-10 15:33 | MHC.PC.OV ---
Vital Signs 07/10/24 15:34 Height 5 ft 6 in Weight 166 lb 8 oz BMI 26.9 BP 120/68 Blood Pressure Location Lt brachial Position Sitting Pulse 74 Pulse Source Pulse Oximeter Pulse Oximetry (%) 98 Oxygen Delivery Method Room Air Intake Visit Reasons: [facility] lt foot pain Intake Note: Patient is here for hospital discharge follow up. Patient was discharged from [facility] on 06/28/24 . Undertaker Assistant Required: No Topographic Computator: Not Required per policy Accompanied by: Self / Same As Patient Allergies atorvastatin Allergy (Unknown, Verified 07/10/24 15:34) joint pain pravastatin Allergy (Unknown, Verified 07/10/24 15:34) Unknown simvastatin Allergy (Unknown, Verified 07/10/24 15:34) Unknown Tobacco use date assessed: 07/10/24 Fall risk assessment: No Falls in past year Last assessed Fall Risk: 07/10/24 Dental Screening Dental Screen Date: 11/03/23 HPI [facility] lt foot pain HPI Details 63-year-old overweight female with a history of hypercholesterolemia migraines peripheral vascular disease last seen 05/2024 coming in for hospital discharge follow up. In review of the notes patient was seen in [facility] ED 06/28/2024 for left foot pain given lidocaine patch and discharged home. Patient states on 06/27/2024 she was sitting down watching TV when she felt a spontaneous pain in her left foot. The pain worsened throughout the night and did not respond to ibuprofen or Tylenol and patient presented to the ER where she was given lidocaine patches and discharge. The following day she continued to have severe foot pain that eventually resolved after the 2 days. Since the initial episode she has not had any further foot pain, swelling, redness or warmth. [facility] Medical History Colon cancer screening Exposure to blood or body fluid Low back pain Annual physical exam COVID-19 virus infection Colonoscopy refused Anxiety Vitamin D deficiency Hypercholesterolemia Migraine Surgical History History of varicose veins History of detached retina repair History of eye surgery Family History Father No problems noted. Mother Stroke Hypertension Paternal Uncle Myocardial infarction Family/Other Depression with anxiety Daughter Substance abuse Social History Housing: House Alcohol intake: never Patient Tobacco Use Status: Former Tobacco user Tobacco use type: Cigarette Years Smoked: teenager e-Cigarette/Vaping Use: Never Used Second Hand Smoke Exposure: Yes service: No Current occupational status: employed Cognitive needs: No Hearing needs: No Vision needs: Yes Female Reproductive History Menstrual Age of Menarche: 12 Questionnaire Thrive Questionnaire Date Thrive assessed: 11/03/23 Are you currently unemployed and looking for a job?: No NITIN-7 AMB Questionnaire NITIN-7 Date NITIN - 7 assessed: 11/03/23 Source: Developed by Drs. Amol Murray, Nelly Garcia, Narendra Melchor and colleagues, with an educational damaso from [employer]. Review of Systems Const Denies body aches, Denies chills, Denies fever(s), Denies headache(s) and Denies poor appetite Eyes Reports no additional complaints ENT Denies dizziness and Denies headache(s) Card Denies chest pain and Denies dyspnea Resp Denies cough and Denies dyspnea GI Reports no additional complaints Reports no additional complaints Musc Reports no additional complaints and Denies abnormal gait Skin/Breast Reports system reviewed and no additional complaints, except as documented Neuro Denies abnormal gait, Denies dizziness and Denies headache(s) Psych Reports no additional complaints Physical exam (Primary Care) Vital Signs: Last Vital Signs Pulse 74 07/10/24 15:34 BP 120/68 07/10/24 15:34 Pulse Ox 98 07/10/24 15:34 Oxygen Delivery Method Room Air 07/10/24 15:34 BMI result Body Mass Index 26.9 Tobacco/Smoking Status: Tobacco use Status Tobacco use date assessed 11/03/23 05/04/24 08:02 Patient Tobacco Use Status Former Tobacco user 05/04/24 08:02 Tobacco use type Cigarette 05/04/24 08:02 e-Cigarette/Vaping Use Never Used 05/04/24 08:02 Thrive Assessment: Date of Thrive Assessment Date Thrive assessed 11/03/23 05/04/24 08:02 Const General: cooperative, healthy appearing, comfortable and no acute distress Orientation/consciousness: patient oriented x3 HENMT Head: Yes normocephalic Ears: hearing grossly normal bilaterally General nose exam: Normal external nose present Eyes General: appearance normal, both eyes and all related structures Conjunctivae: conjunctivae normal Neck Neck: Yes full ROM and Yes no lymphadenopathy Resp Effort & Inspection: normal respiratory effort Auscultation: clear to auscultation bilaterally, no crackles, no rales, no rhonchi and no wheezes Cardio Rate: regular rate Rhythm: regular rhythm Skin General skin exam: no rashes or lesions noted Neuro General: patient oriented x3 Gait exam (Neuro): Normal gait present Extrem Other: Pulses, strength, sensation intact in left lower extremity. No redness, warmth, swelling of the left foot and no tenderness to palpation over the entirety of the left foot and ankle. General: Yes normal to inspection, Yes full ROM and No edema Psych Affect: normal affect Attitude: cooperative Insight: Good insight present (Psych) Judgement: Good judgement present (Psych) Coding Level of Care Code Est Pt Level 3 (70348) Diagnoses Elevated blood pressure reading without diagnosis of hypertension R03.0 Left foot pain M79.672 Assessment & Plan Assessment & Plan (1) Elevated blood pressure reading without diagnosis of hypertension: Code(s): R03.0 - Elevated blood-pressure reading, without diagnosis of hypertension Category: Medical Plan: Blood pressure controlled at today's visit continue to monitor. (2) Left foot pain: Code(s): M79.672 - Pain in left foot Category: Medical Plan: Patient likely had a muscle strain or tendonitis of the dorsum of the left foot that is spontaneously resolved. Discussed if this pain returns may use Tylenol and ibuprofen as well as a lidocaine patches for pain management. If it does arise and becomes persistent please return to the office for re-evaluation. No imaging necessary at this time. Plan This note was constructed using voice recognition software. While every effort has been made to ensure accuracy and supervisor pastry, still areas may have been included sometimes these areas may affect the content or meeting of the given symptoms. Total time spent caring for the patient today was 20 minutes. This includes time spent before the visit reviewing the chart, time spent during the visit, and time spent after the visit and documentation.
[2024-07-10 15:34] VITALS: BP 120/68; PULSE 74; O2SAT 98; BMI 26.9
== END 2024-07-10 16:06 | disposition home or self-care (01) ==
PROVIDERS: PCP Internal Medicine
DX: R03.0 Elevated blood-pressure reading, without diagnosis of hypertension (principal); M79.672 Pain in left foot

== ENCOUNTER → 2024-07-10 15:31 | Outpatient (BNVA) | payer OTHER, SELFPAY | PROVIDERS: PCP Internal Medicine ==

== ENCOUNTER 2024-07-13 08:17 | Outpatient (REF) | payer OTHER, SELFPAY ==
[2024-07-16 10:46] LABS: HPV 16,18/45 See PAP report
== END 2024-07-13 08:18 | disposition home or self-care (01) ==
LOC: HO.LNP 08:17
PROVIDERS: PCP Internal Medicine; Visit Provider Advanced Practice Midwife
DX: Z01.419 Encounter for gynecological examination (general) (routine) without abnormal findings (principal); Z11.51 Encounter for screening for human papillomavirus (HPV)
CPT/HCPCS: 87624; 88175

== ENCOUNTER 2024-07-13 08:17 | Outpatient (AMB) | payer OTHER, SELFPAY ==
--- NOTE | 2024-07-13 08:18 | A.OFFVIS_ITS ---
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 She is doing well with no concerns. Admits vaginal dryness or irritation. Attempting to eat a healthy diet with calcium and vitamin D and stays active with exercise-walks. Last pap smear; 2020-unsatisfactory. Last mammogram; 2022, booked this month. Cologard is UTD. Denies any family history of breast, ovarian or colon cancer. [facility] Medical History Colon cancer screening Exposure to blood or body fluid Low back pain Annual physical exam COVID-19 virus infection Colonoscopy refused Anxiety Vitamin D deficiency Hypercholesterolemia Migraine Surgical History History of varicose veins History of detached retina repair History of eye surgery Family History Father No problems noted. Mother Stroke Hypertension Paternal Uncle Myocardial infarction Family/Other Depression with anxiety Daughter Substance abuse Social History Housing: House Alcohol intake: never Patient Tobacco Use Status: Former Tobacco user Tobacco use type: Cigarette Years Smoked: teenager e-Cigarette/Vaping Use: Never Used Second Hand Smoke Exposure: Yes service: No Current occupational status: employed Cognitive needs: No Hearing needs: No Vision needs: Yes Female Reproductive History Menstrual Age of Menarche: 12 Total pregnancies: 2 Full term: 2 Date of last pap smear: 01/16/21 (negative hpv ) Date of Mammogram: 07/12/23 (bi rad 1) Assessment & Plan Assessment & Plan (1) Encounter for well woman exam with routine gynecological exam: Code(s): Z01.419 - Encounter for gynecological examination (general) (routine) without abnormal findings Category: Medical Plan Discussed: Current recommendations for pap smears per ASCCP guidelines. Breast awareness, periodic self breast exams and yearly mammogram. Maintain a healthy lifestyle, well balanced diet including Calcium 1,200 mg and Vitamin D 600 IU daily, and routine exercise. Contact the office with any postmenopausal bleeding. Patient verbalizes understanding and agrees to the plan of care. She was given opportunity to ask questions and all questions were answered to the best of my ability. RTO in 1 year for annual digital engineer exam. This note is constructed using voice recognition software. While every effort has been made to ensure accuracy, supervisor metal fabricating errors may have been included. Orders: Orders HPV High risk Today Z01.419 - Encounter for gynecological examination (general) (routine) without abnormal findings Pap Smear Today Z01.419 - Encounter for gynecological examination (general) (routine) without abnormal findings Coding Level of Care Code Est Pt Prev Care >65y(04756) Diagnoses Encounter for well woman exam with routine gynecological exam Z01.419
[2024-07-13 08:26] VITALS: BP 130/78; BMI 26.6
== END 2024-07-13 08:43 | disposition home or self-care (01) ==
PROVIDERS: PCP Internal Medicine; Visit Provider Advanced Practice Midwife
DX: Z01.419 Encounter for gynecological examination (general) (routine) without abnormal findings (principal)
CPT/HCPCS: 99397

== ENCOUNTER 2024-07-17 07:40 | Outpatient (REF) | payer OTHER, SELFPAY | END 2024-07-17 07:41 | disposition home or self-care (01) | LOC: HO.MAMMO 07:40 | PROVIDERS: PCP Internal Medicine; Visit Provider Internal Medicine | DX: Z12.31 Encounter for screening mammogram for malignant neoplasm of breast (principal) | CPT/HCPCS: 77063; 77067 ==

== ENCOUNTER → 2024-07-17 08:00 | Outpatient (BNV) | payer OTHER, SELFPAY | PROVIDERS: PCP Internal Medicine; Visit Provider Internal Medicine | DX: Z12.31 Encounter for screening mammogram for malignant neoplasm of breast (principal) | CPT/HCPCS: 77063; 77067 ==

== ENCOUNTER 2024-07-27 08:01 | Outpatient (AMB) | payer OTHER, SELFPAY ==
--- NOTE | 2024-07-27 08:58 | AM.OFFWIN_ITS ---
Intake Vital Signs 3 07/27/24 09:04 Weight 170 lb BP 140/80 H Blood Pressure Location Lt brachial Position Sitting Pulse 81 Pulse Source Pulse Oximeter Pulse Oximetry (%) 98 Oxygen Delivery Method Room Air Intake Visit Reasons: EP LT eye ?Infection Intake Note: Patient here for left eye irritation, itching. Patient Tobacco Use Status: Former Tobacco user Allergies atorvastatin Allergy (Unknown, Verified 07/27/24 09:05) joint pain pravastatin Allergy (Unknown, Verified 07/27/24 09:05) Unknown simvastatin Allergy (Unknown, Verified 07/27/24 09:05) Unknown Do you need a note to return to daycare/school/sports/work: No HPI EP LT eye ?Infection 2 HPI0 Details This is a 63-year-old female patient who presents to the walk-in clinic today with irritated left upper eyelid for the last several days. She reports lid is itchy, and her eye has been watering with a little bit of yellowish crust on the upper lashes. She denies any known exposure to sick contacts. She denies any other sick symptoms. She denies any blurry vision or pain in her eye. She denies scratching/rubbing eye or any sensation of any foreign bodies in eye. [facility] Medical History Colon cancer screening Exposure to blood or body fluid Low back pain Annual physical exam COVID-19 virus infection Colonoscopy refused Anxiety Vitamin D deficiency Hypercholesterolemia Migraine Surgical History History of varicose veins History of detached retina repair History of eye surgery Family History Father No problems noted. Mother Stroke Hypertension Paternal Uncle Myocardial infarction Family/Other Depression with anxiety Daughter Substance abuse Social History Housing: House Alcohol intake: never Patient Tobacco Use Status: Former Tobacco user Tobacco use type: Cigarette Years Smoked: teenager e-Cigarette/Vaping Use: Never Used Second Hand Smoke Exposure: Yes service: No Current occupational status: employed Cognitive needs: No Hearing needs: No Vision needs: Yes Female Reproductive History Menstrual Age of Menarche: 12 Review of Systems Const All systems reviewed & are unremarkable except as noted in HPI and below Physical Exam Vital Signs: Last Vital Signs Pulse 81 07/27/24 09:04 BP 140/80 H 07/27/24 09:04 Pulse Ox 98 07/27/24 09:04 Oxygen Delivery Method Room Air 07/27/24 09:04 Const General: cooperative, healthy appearing, comfortable and no acute distress HEENT Head: Yes normal to inspection Ears: hearing grossly normal bilaterally Eyes Alignment and Position: alignment normal Eyelids: Yes eyelid abnormality (left upper lid erythematous, mild swelling) Conjunctivae: conjunctivae normal Sclerae: sclerae normal Pupils: Equal, round and reactive pupils present EOM: EOMs intact bilaterally Direct Ophthalmoscopy: normal light reflex and no photophobia Eyes/upper lids images: 2 1. swelling/erythema Resp Effort & Inspection: normal respiratory effort Skin General skin exam: no rashes or lesions noted Neuro Cranial nerves: Yes Equal, round and reactive pupils present Extrem General: Yes no clubbing, cyanosis or edema Psych Appearance: grossly normal Mental Status: mental status grossly normal Speech and movement: Normal speech and movement present Assessment & Plan Assessment & Plan (1) Blepharitis of left upper eyelid: Code(s): H01.004 - Unspecified blepharitis left upper eyelid Qualifiers: Blepharitis type: unspecified type Qualified Code(s): H01.004 - Unspecified blepharitis left upper eyelid Plan: Advised good hand hygiene and warm compresses to upper lid. She does not wear contact lenses. Will start her on erythromycin eye ointment and we reviewed indications, use, possible side effects of this medication. If she does not improve with treatment, or certainly if symptoms worsen/new symptoms develop including eye pain or changes in vision, she should return to clinic or emergency department. She verbalizes understanding and agrees to plan. Medications: New 2 erythromycin Apply thin ribbon of ointment to left eye once daily at bedtime for 7 days. 1 appl ophthalmic (eye) DAILY 7 days 3.5 grams 1RF H01.004 - Unspecified blepharitis left upper eyelid Coding Level of Care Code Est Pt Level 4 (30136) Diagnoses Blepharitis of left upper eyelid, unspecified type H01.004 Blepharitis type: unspecified type
[2024-07-27 09:04] VITALS: BP 140/80; PULSE 81; O2SAT 98
== END 2024-07-27 09:26 | disposition home or self-care (01) ==
PROVIDERS: PCP Internal Medicine; Visit Provider Nurse Practitioner Family
DX: H01.004 Unspecified blepharitis left upper eyelid (principal)

== ENCOUNTER → 2024-07-27 08:01 | Outpatient (BNVA) | payer OTHER, SELFPAY | PROVIDERS: PCP Internal Medicine; Visit Provider Nurse Practitioner Family ==

== ENCOUNTER 2024-08-10 14:48 | Outpatient (AMB) | payer OTHER, SELFPAY ==
[2024-08-10 14:54] VITALS: BP 140/86; PULSE 89; O2SAT 96; BMI 27.0
--- NOTE | 2024-08-10 14:54 | MHC.PC.OV ---
Vital Signs 08/10/24 14:54 08/10/24 15:20 Height 5 ft 6 in Weight 167 lb 6 oz BMI 27.0 BP 140/86 H 144/80 H Blood Pressure Location Lt brachial Lt brachial Position Sitting Sitting Pulse 89 Pulse Source Pulse Oximeter Pulse Oximetry (%) 96 Oxygen Delivery Method Room Air Intake Visit Reasons: f/u HTN and HLD Phlebotomist Supervisor/Instructor Required: No Accompanied by: Self / Same As Patient Allergies atorvastatin Allergy (Unknown, Verified 08/10/24 14:54) joint pain pravastatin Allergy (Unknown, Verified 08/10/24 14:54) Unknown simvastatin Allergy (Unknown, Verified 08/10/24 14:54) Unknown Medication List - Last Reconciled 08/10/24 by Leif Hernandez Po, alclometasone 0.05% 1 appl topical BID PRN aspirin (Adult Aspirin Regimen) 81 mg PO DAILY ibuprofen (Motrin IB) 200 mg PO Q6H PRN lidocaine 4% (Salonpas (lidocaine)) 1 patch topical DAILY PRN bunlnmgi-yiv-sxeu-FA-vit K-lut 8 mg iron-400 mcg-50 mcg (Centrum Silver Women) 1 tab PO DAILY omega-3 fatty acids 500 mg PO DAILY salmon oil-omega-3 fatty acids 1,000-210 mg caps PO sumatriptan succinate (Imitrex) 100 mg PO .QD PRN Tobacco use date assessed: 08/10/24 Last assessed Fall Risk: 08/10/24 Dental Screening Dental Screen Date: 08/10/24 HPI f/u HTN and HLD HPI Details The patient is a 63-year-old female presenting with leg pain, eyelid inflammation, and management concerns regarding blood pressure and cholesterol levels. She reports experiencing severe leg muscle spasms on gi, characterized by intense pain on the top of her leg, which she initially feared might be a blood clot. She sought emergency care where pain management was attempted with patches, though results were limited. Over time, the symptoms resolved without residual pain. Additionally, the patient reported eyelid inflammation. Initially suspecting conjunctivitis, she sought care at a walk-in clinic and was prescribed erythromycin eye ointment, which she used briefly. She has experienced improvement in symptoms and no longer poses signs of the initial condition such as severe redness or swelling. The patient has a history of hypercholesterolemia, with recent measurements indicating a total cholesterol over 173 mg/dL. She has a history of adverse effects from cholesterol-lowering medications and prefers non-pharmacological management of her cholesterol through dietary adjustments. The patient expresses a desire to address her high cholesterol through lifestyle changes, citing frequent intake of fruits and vegetables due to her 's dietary needs. She has an intermediate risk for cardiac problems, which concerns her. The patient monitors her blood pressure at home, often recording values around 130/80 mmHg but noted a recent in-clinic reading of 144/80 mmHg, attributing higher clinic readings to situational anxiety. She is keen on maintaining home management due to consistent target-level blood pressures achieved independently. [facility] Medical History Colon cancer screening Exposure to blood or body fluid Low back pain Annual physical exam COVID-19 virus infection Colonoscopy refused Anxiety Vitamin D deficiency Hypercholesterolemia Migraine Surgical History History of varicose veins History of detached retina repair History of eye surgery Family History Father No problems noted. Mother Stroke Hypertension Paternal Uncle Myocardial infarction Family/Other Depression with anxiety Daughter Substance abuse Social History Housing: House Alcohol intake: never Patient Tobacco Use Status: Former Tobacco user Tobacco use type: Cigarette Years Smoked: teenager e-Cigarette/Vaping Use: Never Used Second Hand Smoke Exposure: Yes service: No Current occupational status: employed Cognitive needs: No Hearing needs: No Vision needs: Yes Female Reproductive History Menstrual Age of Menarche: 12 Questionnaire PHQ-9 Over the last 2 weeks, how often have you been bothered by any of the following problems? 1. Little interest or pleasure in doing things: not at all 2. Feeling down, depressed, or hopeless: not at all 3. Trouble falling or staying asleep, or sleeping too much: not at all 4. Feeling tired or having little energy: not at all 5. Poor appetite or overeating: not at all 6. Feeling bad about yourself - or that you are a failure or have let yourself or your family down: not at all 7. Trouble concentrating on things, such as reading the newspaper or watching television: not at all 8. Moving or speaking so slowly that other people could have noticed. Or the opposite - being so fidgety or restless that you have been moving around a lot more than usual: not at all 9. Thoughts that you would be better off or of hurting yourself in some way: not at all Total score: 0 Depression Screening Interpretation: Negative Depression Screening Done: Yes 77831 - PHQ-9 Billing: Yes Source: Developed by Drs. Amol Murray, Nelly Garcia, Narendra Melchor and colleagues, with an educational damaso from [employer]. Thrive Questionnaire Date Thrive assessed: 08/10/24 I am a: Patient What is your living situation today?: I have a steady place to live Within the past 12 months, did the food you bought not last and you didn't have the money to get more?: Never true Within the past 12 months, did you worry whether your food would run out before you got money to buy more?: Never true Do you have trouble paying for medicines?: No Do you have trouble getting transportation to medical appointments?: No Do you have trouble paying your heating and electricity bill?: No Do you have trouble taking care of your child, family member or friend?: No Do you have trouble with day-to-day activities such as bathing, preparing meals, shopping, managing finances, etc.?: No Are you currently unemployed and looking for a job?: No Are you interested in more education?: No Please select the resources that you would like help with: None Currently or been in a relationship where the following occur: No concerns reported THRIVE Score: 0 AUDIT C Alcohol Use Questionnaire (AUDIT-C) 1. How often do you have a drink containing alcohol?: Never 3. How often do you have six or more drinks on one occasion?: Never Total Score: 0 NITIN-7 AMB Questionnaire NITIN-7 Date NITIN - 7 assessed: 08/10/24 Feeling nervous, anxious, or on edge: 0 = Not at all Not being able to stop or control worryin = Not at all Worrying too much about different things: 0 = Not at all Trouble relaxin = Not at all Being so restless that it is hard to sit still: 0 = Not at all Becoming easily annoyed or irritable: 0 = Not at all Feeling afraid as if something awful might happen: 0 = Not at all Total NITIN-7 score (0-4 normal; 5-9 mild; 10-14 moderate; 15-21 severe): 0 Source: Developed by Drs. Amol Murray, Nelly Garcia, Narendra Melchor and colleagues, with an educational damaso from [employer]. Physical exam (Primary Care) Vital Signs: Last Vital Signs Pulse 89 08/10/24 14:54 BP 140/86 H 08/10/24 14:54 Pulse Ox 96 08/10/24 14:54 Oxygen Delivery Method Room Air 08/10/24 14:54 BMI result Body Mass Index 27.0 Tobacco/Smoking Status: Tobacco use Status Tobacco use date assessed 08/10/24 08/10/24 14:57 Patient Tobacco Use Status Former Tobacco user 08/10/24 14:57 Tobacco use type Cigarette 08/10/24 14:57 e-Cigarette/Vaping Use Never Used 08/10/24 14:57 PHQ-9: PHQ-9 Score PHQ-9: Total score 0 08/10/24 14:57 Depression Screening Interpretation: Negative Thrive Assessment: Date of Thrive Assessment Date Thrive assessed 08/10/24 08/10/24 14:57 Currently or been in a relationship where the following occur: No concerns reported Const General: alert; No acute distress Eyes Conjunctivae: conjunctivae normal Resp Auscultation: clear to auscultation bilaterally Cardio Rate: regular rate Rhythm: regular rhythm GI Inspection: Yes normal to inspection Extrem General: Yes normal to inspection and No edema Coding Level of Care Code Est Pt Level 4 (22040) Diagnoses Hypercholesterolemia E78.00 Migraine without aura and without status migrainosus, not intractable G43.009 Migraine type: without aura Status migrainosus presence: without status migrainosus Intractability: not intractable Overweight (BMI 25.0-29.9) E66.3 Left foot pain M79.672 Screening for osteoporosis Z13.820 Additional Codes PHQ-9 - 28880 - PHQ-9 Billing: Yes ([id number]) Assessment & Plan Assessment & Plan (1) Hypercholesterolemia: Comment: ASCVD risk 8.7% Code(s): E78.00 - Pure hypercholesterolemia, unspecified Category: Medical (2) Migraine: Code(s): G43.909 - Migraine, unspecified, not intractable, without status migrainosus Category: Medical Qualifiers: Migraine type: without aura Status migrainosus presence: without status migrainosus Intractability: not intractable Qualified Code(s): G43.009 - Migraine without aura, not intractable, without status migrainosus (3) Overweight (BMI 25.0-29.9): Code(s): E66.3 - Overweight Category: Medical (4) Left foot pain: Code(s): M79.672 - Pain in left foot Category: Medical Plan: resolved (5) Screening for osteoporosis: Code(s): Z13.820 - Encounter for screening for osteoporosis Category: Medical Plan - Discussed the importance of home monitoring for blood pressure management and encouraged continued self-monitoring. - Recommended dietary and lifestyle modifications to manage hypercholesterolemia, emphasizing the intake of fruits and vegetables. - Advised caution with use of topical medications for eyelid care; instructed use of tear-free baby shampoo for routine hygiene to prevent recurrences of blepharitis. - Acknowledged patient's decision to avoid pharmacological treatments for hypercholesterolemia given past adverse reactions, and promoted non-pharmacological strategies. - Suggested bone density assessment due to patient's age as part of her preventative health care, pending patient's interest and prior examination timelines. 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 Orders: Orders XR DEXA axial skeleton Today M81.0 - Age-related osteoporosis without current pathological fracture, Z13.820 - Encounter for screening for osteoporosis Lipid Panel Today E78.00 - Pure hypercholesterolemia, unspecified Thyroid Stimulating Hormone Today E78.00 - Pure hypercholesterolemia, unspecified Complete Blood Count Auto Diff Today E78.00 - Pure hypercholesterolemia, unspecified Comprehensive Met. Panel Today E78.00 - Pure hypercholesterolemia, unspecified Free T4 (Free Thyroxine) Today E78.00 - Pure hypercholesterolemia, unspecified Vitamin B12 and Folate Today E78.00 - Pure hypercholesterolemia, unspecified Vitamin D 25-OH Total Today E78.00 - Pure hypercholesterolemia, unspecified Hemoglobin A1c Today E78.00 - Pure hypercholesterolemia, unspecified Medications: Discontinued ezetimibe (Zetia) Discontinued Reason: Patient Refused 10 mg PO DAILY 30 tabs 4RF E78.00 - Pure hypercholesterolemia, unspecified erythromycin Apply thin ribbon of ointment to left eye once daily at bedtime for 7 days. Discontinued Reason: Patient Completed Course 1 appl ophthalmic (eye) DAILY 7 days 3.5 grams 1RF H01.004 - Unspecified blepharitis left upper eyelid
[2024-08-10 15:20] VITALS: BP 144/80
== END 2024-08-10 15:39 | disposition home or self-care (01) ==
PROVIDERS: PCP Internal Medicine; Visit Provider Internal Medicine
DX: E78.00 Pure hypercholesterolemia, unspecified (principal); G43.009 Migraine without aura, not intractable, without status migrainosus; E66.3 Overweight; M79.672 Pain in left foot; Z13.820 Encounter for screening for osteoporosis

== ENCOUNTER → 2024-08-10 14:48 | Outpatient (BNVA) | payer OTHER, SELFPAY | PROVIDERS: PCP Internal Medicine; Visit Provider Internal Medicine | DX: E78.00 Pure hypercholesterolemia, unspecified (principal); G43.009 Migraine without aura, not intractable, without status migrainosus; E66.3 Overweight; M79.672 Pain in left foot | CPT/HCPCS: 96127 ==

== ENCOUNTER 2024-09-07 09:00 | Outpatient (REF) | payer OTHER, SELFPAY ==
--- OUTSIDE RECORDS SUMMARY | 2024-09-07 09:21 | XMS_ITS ---
Author Organization [facility] Address [address] [facility] [place] [address] Care Team Providers Care Chemical Production Engineer Name Role Phone Leif Chu Primary Care Provider Blayne Pierre [phone] REASON FOR VISIT Last PCP Visit: 10/31/23, Foot pain Medications Medication SIG (Take, Route, Frequency, Duration) Notes Start Date End Date Status Voltaren 1 % as directed Externally Active Encounters Encounter Location Date Provider [facility] [address] [address] 12/20/2023 Blayne Jenkins Pain in right foot [...] Reason: Progress Notes * Lc NÚÑEZB: 959 (63 yo F)Acc No.[id number]:12/20/2023 Progress Notes Patient:?Keri NÚÑEZ Provider:?Blayne Jenkins DPM :1960???Age:63 Y???Sex:Female D ate:12/20/2023 Address:[address] [place] [address] [facility] Pcp:Leif Chu Subjective: * Chief Complaints: * ???1. Last PCP Visit: 10/31/23 . 2. Foot pain. 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 * ROS:?General/Constitutional:?Nausea?denies, denies, denies.?Vomiting?denies, denies, denies.?Hunger Thirst?denies, denies, denies.?Loss appetite?denies, denies, denies.?Chills?denies, denies, denies.?Fatigue?denies, denies, denies.?Fever?denies, denies, denies.?Night Sweats?denies, denies, denies.?Unexplained weight loss?denies, denies, denies.?Unexplained weight gain?denies.?Ophthalmologic:?Blurred vision?denies, denies.?Red eye?denies, denies.?HEENTM:?Dentures?denies, denies, denies.?Dizziness?denies, denies, denies.?Glasses/contacts?admits, denies, denies.?Retinopathy?denies, denies, denies.?Blurred/double vision?denies, denies, denies.?TMJ?denies, denies, denies.?Discharge/drainage?denies, denies, denies.?Implants?denies, denies, denies.?Sore throat?denies.?Dental implants?denies.?Hard of hearing ?denies, denies, denies.?Difficulty chewing/swallowing/speaking?denies, denies, denies.?Nose bleeds?denies, denies, denies.?Sore mouth?denies, denies, denies.?Swollen glands?denies, denies.?Respiratory:?On Oxygen?denies, denies, denies.?Pneumonia/pleurisy?denies, denies, denies.?Bronchitis?denies, denies, denies.?Emphysema?denies, denies, denies.?Coughing?denies, denies, denies.?Cough blood?denies, denies, denies.?Shortness of breath?denies, denies, denies.?Wheezing?denies, denies, denies.?Cardiovascular:?Pacemaker?denies, denies, denies.?MVP?denies, denies, denies.?WPW?denies, denies, denies.?CHF?denies, denies, denies.?Heart attack?denies, denies, denies.?Septal defect?denies, denies, denies.?Rapid beat denies, denies, denies.?Chest pain ?denies, denies, denies.?Atrial Fib.?denies, denies, denies.?Murmur/Palpitations?denies, denies, denies.?Gastrointestinal:?Hemorrhoids?denies, denies, denies.?Stomach/Abdominal pain?denies, denies, denies.?Dark blood stool?denies, denies, denies.?Irritable bowel ?denies, denies, denies.?Constipation?denies, denies, denies.?Diarrhea denies, denies, denies.?Vomiting?denies, denies.?Hematology:?Swelling?denies, denies, denies.?Clots?denies.?Varicose Veins?admits.?Bruising?denies, denies, denies.?Bleeding problem?denies, denies, denies.?Genitourinary:?Blood urine?denies, denies, denies.?Frequent/Painfu/urination/bladder control?denies, denies, denies.?Kidney stones?denies, denies, denies.?Infection (UTI)?denies, denies, denies.?Nephropathy?denies, denies, denies. sex trans dis (STD)?denies.?Prostate?denies.?Musculoskeletal:?Hammertoes?denies, denies, denies.?Bunions?denies, denies, denies.?Scoliosis/kyphosis?denies, denies.?Back Pain?denies.?Muscle Cramps/ Resting?denies.?Muscle cramps / walking?denies, denies, denies.?Generalized aches and pains?denies, denies, denies.?Weakness?denies, denies, denies.?Integ.:?Cordon?denies, denies, denies.?Scars?denies, denies, denies.?Corns/calluses?admits, denies, denies.?Ingrown nails?denies, denies, denies.?Painful nails?admits, denies, denies.?Open Sores?denies.?Rashes?denies, denies, denies.?Neurologic:?Difficulty sleeping?denies, denies, denies.?Bipolar?denies, denies.?Brain disorder?denies, denies, denies.?Numbness?denies.?Balance trouble?denies, denies, denies.?Confusion?denies, denies, denies.?Fainting/blackouts?denies, denies, denies.?Headache?denies, denies.?Tingling?denies.?Tremors?denies, denies, denies.? * Medical History:? Objective: * Vitals:? * Examination: ???General Examination: ?GENERAL APPEARANCE:?pleasant, alert, well nourished, well developed, well hydrated, with good attention to hygene/body habitus, and in no acute distress.?ORIENTED:?person,place, and time.?Neurological: ?SENSORY:? Neurological exam demonstrates pop plantar right 2nd mtpj.?TINEL'S COMPRESSION:?Negative tarsal tunnel, dory pedis, and medial calcaneal nerves B/L.?BABINSKI REFLEX:?absent.?Neuroma Pain: ?PALPATION:?No interspace pain noted on palpation.?Vascular: ?DP PULSES (B):?2/4, B/L.?PT PULSES (B):?2/4, B/L.?CAPILLARY FILL TIME:?3 secs. per digit, B/L.?TROPHIC CONDITION-TEXTURE/ELASTICITY/TURGOR/HAIR GROWTH (B):?normal, B/L.?TEMPERTURE GRADIENT (C):?warm to cool, proximal to distal, B/L.?PIGMENTATION:?normal, B/L.?EDEMA (C):?no edema.?TELANGECTASIA:?absent.?VARICOSITIES:?absent.?Dermatologic: ?SKIN FINDINGS:?Skin exam reveals normal texture, elasticity, and tugor. There are no masses. The interspaces are clear, B/L .?Orthopedic: ?MUSCLE STRENGTH:?5/5 all groups in a symmetrical fashion , B/L.?GAIT ABNORMALITY:?pronated, abducted, B/L.?BUNION:? Medially prominent 1st MPJ, RIGHT, Lateral tracking 1st MPJ incompletely reducible.?DIGITAL DEFORMITIES:? Digital contracture, PIPJ, 2-5 B/L, incompl- reducible with WB, or to push-up test, no over, nor underlapping.?X-Rays - IMAGING REPORT: ?Clinical Indication(s):? Evaluate Biomechanical Deformity.?Views:? 3 views of Foot, RIGHT.?Findings:? mild generalized decrease in bone density.?Foot structure:? reveals excess pronation with, anterior break in cyme line.?Digits:? show asymmetrical joint space narrowing at the PIPJ consistent with clinical finding of hammertoe deformity, show enlarged/hypertrophied phalangeal head(s) consistent for clinical finding of hammertoe deformity, show dorsal subluxation of MTPJ, 2nd digit.?HAV:? increased First Intermetatarsal angle and Hallux Abductus angle consistent with Bunion deformity noted, hypertrophy of the dorsal and medial 1st MTH without subchondral cyst, moderate.? Assessment: * Assessment: 1.?Pain in right foot - M79. 671 (Primary)???2.?Metatarsalgia, right foot - M77.41???3.?Hallux valgus (acquired), right foot - M20.11???4.?Other hammer toe(s) (acquired), right foot - M20.41??? Plan: * Treatment: * Procedure Codes:?84174 X-RAY EXAM OF RIGHT FOOT 3V, Modifiers: 26 , RT * Follow Up:?4 Weeks * Images: * The named appointment provid er may or may not be the originator of this progress note, and it is not deemed complete until electronically signed by the appointment provider. Sign off status: Pending * Provider:?Blayne Jenkins DPM Date:? 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
--- OUTSIDE RECORDS SUMMARY | 2024-09-07 09:21 | XMS_ITS ---
Author Organization [facility] Address [address] [place] [address] Care Team Providers Care Driver Engineer Name Role Phone Leif Chu Primary Care Provider Blayne Pierre [phone] REASON FOR VISIT bought 2 bags lambs wool Encounters Encounter Location Date Provider Diagnosis [facility] [address] [place] [address] 01/25/2024 Blayne Jenkins Plan Of Treatment No Information Progress Notes * Lc NÚÑEZB: 959 (63 yo F)Acc No.[id number]:01/25/2024 Patient:?NiyaLazarusKeri :1960???Age:63 Y???Sex:Female Address:[address] [place], [place] [address], [address] * true * Date:? Generated for Printi ruby/Purnima/eTransmitting on:?09/07/2024 09:21 AM EST
--- OUTSIDE RECORDS SUMMARY | 2024-09-07 09:22 | XMS_ITS | Patient Health Record ---
Author Organization [facility] [place] Address [address] [facility] [place] [place] [address] Care Team Providers Care Watch Guard Gate Name Role Phone Leif Chu Primary Care Provider Blayne Pierre Unavailable [phone] Allergies No Known Allergies Reason For Referral No Information Medications Medication SIG (Take, Route, Frequency, Duration) Notes Start Date End Date Status Voltaren 1 % as directed Externally Active Aspirin 81 MG 1 tablet Orally Once a day for 30 day(s) Active SUMAtriptan Succinate 100 MG 1 tablet at least 2 hours between doses as needed Orally Twice a day Active Immunizations Vaccine Route Administration Date Status Comme nts COVID-19 Raji & Raji/Taras Unknown 07/06/2021 R efused Influenza Unknown 07/06/2021 Refused Social History Tobacco Use: Social History Observation Description Date Details (start date - stop date) Never Smoker NA - NA Tobacco Use/Smoking Question Answer Notes Are you a: nonsmoker Additional Findings: Tobacco Non-User Current no n-smoker Alcohol Screen Question Answer Notes Did you have a drink containing alcohol in the p ast year? No Points 0 Interpretation Negative Tobacco use other than smoking: Question Answer Notes Are you an other tobacco user? No Problems Problem Type SNOMED Code ICD Code Onset Dates Problem Status W/U Status Risk Notes Problem Acquired hallux valgus (86409735) Hallux valgus (acquired), left foot (M20.12) Active confirmed Problem Acquired hallux valgus (39691082) Hallux valgus (acquired), right foot (M20.11) Active confirmed Problem Acquired hammer toe of right foot (7145300798138 105) Other hammer toe(s) (acquired), right foot (M20.41) Active confirmed Vital Signs Height 5 ft 6 in in 11/07/2023 Weight 165 lbs 11/07/2023 BMI 26.63 kg/m2 11/07/2023 Encounters Encounter Location Date Provider Diagnosis [address] [address] 11/07/2023 Blayne Jenkins Pain in right foot M79.671 ; Metatarsalgia, right foot M77.41 ; Hallux valgus (acquired), right foot M20.11 and Other hammer toe(s) (acquired), right foot M20.[address] [address] [facility]/07[facility]20[facility] [address] [facility] [address] [place] [address] 12/16/[address] [address] 01/25/[address] [address] 01/25/2024 Blayne Jenkins Assessments Encounter Date Diagnosis (ICD Code) Assessment Notes Treatment Notes Treatment Clinical Notes Section Notes 11/07/2023 Pain in right foot (ICD-10 - M79.671) 11/07/2023 Metatarsalgia, right foot (ICD-10 - M77.41) 11/07/2023 Hallux valgus (acquired), right foot (ICD-10 - M20.11) 11/07/2023 Other hammer toe(s) (acquired), right foot (ICD-10 - M20.41) Plan Of Treatment Pending Test Test Name Order Date X ray : Foot, left 3V 07/06/2021 X ray : Foot, right 3V 11/07/2023 Insurance Providers Payer Name Payer Address Payer Phone Subscriber Number Group Number Insured Name Patient Relationship to Insured Coverage Start Date Coverage End Date Blue Benefits [address] [address] [place] [address] [id number] Keri Núñez Self - patient is the insured Medical (General) History Medical History History ICD Code CAD (Cholesterol) Headaches/Migraines Chicken pox COVID-19 Surgical History Surgery Date(Month/Year)
--- OUTSIDE RECORDS SUMMARY | 2024-09-07 09:22 | XMS_ITS ---
Author Organization [facility] Address [address] [place] [address] Care Team Providers Care Rn Private Duty Name Role Phone Leif Chu Primary Care Provider Blayne Pierre [phone] REASON FOR VISIT [facility] Encounters Encounter Location Date Provider Diagnosis [facility] [address] [place] [address] 01/25/2024 Blayne Jenkins Plan Of Treatment No Information Progress Notes * Lc NÚÑEZB: 959 (63 yo F)Acc No.[id number]:01/25/2024 Patient:?TYRESEKIMBERLILazarus OdellKeri :1960???Age:63 Y???Sex:Female Address:[address] [place], [place] [address], [address] * true * Date:? Generated for Printi ruby/Purnima/eTransmitting on:?09/07/2024 09:21 AM EST
== END 2024-09-07 09:01 | disposition home or self-care (01) ==
LOC: HO.MAMMO 09:00
PROVIDERS: PCP Internal Medicine; Visit Provider Internal Medicine
DX: M81.0 Age-related osteoporosis without current pathological fracture (principal)

== ENCOUNTER → 2024-09-07 09:15 | Outpatient (BNV) | payer OTHER, SELFPAY | PROVIDERS: PCP Internal Medicine; Visit Provider Radiology Diagnostic Radiology | DX: E28.39 Other primary ovarian failure (principal) | CPT/HCPCS: 77080 ==

== ENCOUNTER 2024-10-19 06:23 | Outpatient (REF) | payer OTHER, SELFPAY ==
[2024-10-19 10:14] LABS: MANUAL DIFF FLAG NO
[2024-10-19 10:24] LABS: Basophils Absolute Auto 0.1 X10*3/uL (0.0-0.2); Eosinophils Absolute Auto 0.1 X10*3/uL (0.0-0.4); Eosinophils Percent Auto 1.6 % (0-4); Hematocrit 41.7 % (37.0-47.0); Hemoglobin 13.7 g/dl (12.0-16.0); Imm Gran Abs Auto 0.01 X10*3/uL (0.00-0.03); Imm Gran Pct Auto 0.2 % (0.0-0.4); Lymphocytes Absolute Auto 2.1 X10*3/uL (1.2-4.9); Lymphocytes Percent Auto 43.1 % (20-40); Mean Corpuscular HGB Conc 32.9 g/dl (31.0-35.0); Mean Corpuscular Hemoglobin 30.2 pg (27.0-33.0); Mean Corpuscular Volume 92.1 fL (80.0-98.0); Mean Platelet Volume 10.7 fL (9.4-12.3); Monocytes Absolute Auto 0.4 X10*3/uL (0.1-1.2); Monocytes Percent Auto 7.3 % (2-11); Neutrophils Absolute Auto 2.3 x10*3/uL (2.0-8.3); Neutrophils Percent Auto 46.8 % (45-73); Platelet Count 197 X10*3/uL (160-400); Red Blood Count 4.53 X10*6/uL (4.20-5.50); Red Cell Distribution Width 13.1 % (11.0-16.0); White Blood Count 4.9 X10*3/uL (4.8-10.8)
[2024-10-19 10:36] LABS: Estimated Average Glucose 108 mg/dL; Hemoglobin A1c % 5.4 % (<6.0)
[2024-10-19 10:58] LABS: Alanine Aminotransferase 36 U/L (0-31); Albumin Level 4.2 g/dL (3.5-5.0); Alkaline Phosphatase 45 U/L (39-117); Anion Gap 9 (12-20); Aspartate Amino Transferase 30 U/L (5-31); Bilirubin Total 0.9 mg/dL (0.0-1.0); Blood Urea Nitrogen 13 mg/dL (9-16); Calcium 9.2 mg/dL (8.4-10.2); Carbon Dioxide 27 mmol/L (22-29); Chloride 109 mmol/L (96-108); Cholesterol 241 mg/dL (<200); Estimated Glomerular Filt Rate > 60; Free T4 (Free Thyroxine) 1.04 ng/dL (0.71-1.85); Glucose Random 83 mg/dL (60-115); HDL Cholesterol 43 mg/dL (>40); LDL Cholesterol Calculated 173 mg/dL (<100); Potassium 3.8 mmol/L (3.3-5.1); Sodium 141 mmol/L (135-145); Thyroid Stimulating Hormone 1.62 uIU/mL (0.32-4.0); Total Protein 7.2 g/dL (6.5-8.0); Triglycerides 125 mg/dL (<150); Vitamin D 25-OH Total 88.2 ng/mL (>30)
[2024-10-19 11:06] LABS: Folate 15.8 ng/mL (> or = 4.0); Vitamin B12 993 pg/mL (200-900)
== END 2024-10-19 06:24 | disposition home or self-care (01) ==
LOC: HO.HMGCLDS 06:23
PROVIDERS: PCP Internal Medicine; Visit Provider Internal Medicine
DX: E78.00 Pure hypercholesterolemia, unspecified (principal); Z13.1 Encounter for screening for diabetes mellitus
CPT/HCPCS: 36415; 80053; 80061; 82306; 82607; 82746; 83036; 84439; 84443; 85025

== ENCOUNTER 2024-11-12 08:51 | Outpatient (AMB) | payer OTHER, SELFPAY ==
--- NOTE | 2024-11-12 08:52 | MHC.PC.OV ---
Vital Signs 11/12/24 08:53 Height 5 ft 6 in Weight 166 lb 4 oz BMI 26.8 BP 124/86 Blood Pressure Location Lt brachial Position Sitting Pulse 80 Pulse Source Pulse Oximeter Temp 97.5 F Temp Source Temporal Artery Scan Pulse Oximetry (%) 97 Oxygen Delivery Method Room Air Intake Visit Reasons: Annual Exam Allergies atorvastatin Allergy (Unknown, Verified 11/12/24 08:56) joint pain pravastatin Allergy (Unknown, Verified 11/12/24 08:56) Unknown simvastatin Allergy (Unknown, Verified 11/12/24 08:56) Unknown Medication List - Last Reconciled 11/12/24 by Leif Chu MD alclometasone 0.05% 1 appl topical BID PRN aspirin (Adult Aspirin Regimen) 81 mg PO DAILY ibuprofen (Motrin IB) 200 mg PO Q6H PRN zaofplrd-tpj-vyza-FA-vit K-lut 8 mg iron-400 mcg-50 mcg (Centrum Silver Women) 1 tab PO DAILY salmon oil-omega-3 fatty acids 1,000-210 mg caps PO sumatriptan succinate (Imitrex) 100 mg PO .QD PRN Tobacco use date assessed: 11/12/24 Fall risk assessment: No Falls in past year Last assessed Fall Risk: 11/12/24 Dental Screening Dental Screen Date: 11/12/24 Did you have a dental visit in the last 12 months?: Yes Did you have a dental problem in the last 6 months where you did not have access to dental care?: No Was dental information given to patient?: Patient has dentist REPLACED BY [facility] Medical History (Updated 11/12/24 @ 09:01 by Leif Chu MD) Colon cancer screening Exposure to blood or body fluid Low back pain Annual physical exam COVID-19 virus infection Colonoscopy refused Anxiety Vitamin D deficiency Hypercholesterolemia Migraine Surgical History History of varicose veins History of detached retina repair History of eye surgery Family History Father No problems noted. Mother Stroke Hypertension Paternal Uncle Myocardial infarction Family/Other Depression with anxiety Daughter Substance abuse Social History Housing: House Alcohol intake: never Patient Tobacco Use Status: Former Tobacco user Tobacco use type: Cigarette Years Smoked: teenager e-Cigarette/Vaping Use: Never Used Second Hand Smoke Exposure: Yes service: No Current occupational status: employed Cognitive needs: No Hearing needs: No Vision needs: Yes Female Reproductive History Menstrual Age of Menarche: 12 Questionnaire PHQ-9 Over the last 2 weeks, how often have you been bothered by any of the following problems? 1. Little interest or pleasure in doing things: not at all 2. Feeling down, depressed, or hopeless: not at all 3. Trouble falling or staying asleep, or sleeping too much: not at all 4. Feeling tired or having little energy: not at all 5. Poor appetite or overeating: not at all 6. Feeling bad about yourself - or that you are a failure or have let yourself or your family down: not at all 7. Trouble concentrating on things, such as reading the newspaper or watching television: not at all 8. Moving or speaking so slowly that other people could have noticed. Or the opposite - being so fidgety or restless that you have been moving around a lot more than usual: not at all 9. Thoughts that you would be better off or of hurting yourself in some way: not at all Total score: 0 Depression Screening Interpretation: Negative Depression Screening Done: Yes Source: Developed by Drs. Amol Murray, Nelly Garcia, Narendra Melchor and colleagues, with an educational damaso from [employer]. Thrive Questionnaire Date Thrive assessed: 08/10/24 I am a: Patient What is your living situation today?: I have a steady place to live Within the past 12 months, did the food you bought not last and you didn't have the money to get more?: Never true Within the past 12 months, did you worry whether your food would run out before you got money to buy more?: Never true Do you have trouble paying for medicines?: No Do you have trouble getting transportation to medical appointments?: No Do you have trouble paying your heating and electricity bill?: No Do you have trouble taking care of your child, family member or friend?: No Do you have trouble with day-to-day activities such as bathing, preparing meals, shopping, managing finances, etc.?: No Are you currently unemployed and looking for a job?: No Are you interested in more education?: No Please select the resources that you would like help with: None Currently or been in a relationship where the following occur: No concerns reported THRIVE Score: 0 AUDIT C Alcohol Use Questionnaire (AUDIT-C) 1. How often do you have a drink containing alcohol?: Never 3. How often do you have six or more drinks on one occasion?: Never Total Score: 0 NITIN-7 AMB Questionnaire NITIN-7 Date NITIN - 7 assessed: 08/10/24 Feeling nervous, anxious, or on edge: 0 = Not at all Not being able to stop or control worryin = Not at all Worrying too much about different things: 0 = Not at all Trouble relaxin = Not at all Being so restless that it is hard to sit still: 0 = Not at all Becoming easily annoyed or irritable: 0 = Not at all Feeling afraid as if something awful might happen: 0 = Not at all Total NITIN-7 score (0-4 normal; 5-9 mild; 10-14 moderate; 15-21 severe): 0 Source: Developed by Drs. Amol Murray, Nelly Garcia, Narendra Melchor and colleagues, with an educational damaso from [employer]. Review of Systems Const Denies poor appetite and Denies weakness Eyes Denies no additional complaints ENT Reports Normal hearing present, Denies dizziness, Denies nasal congestion, Denies tinnitus and Denies sore throat Card Denies chest pain, Denies syncope, Denies rapid heart rate and Denies dyspnea Resp Denies cough and Denies dyspnea GI Denies change in stool character, Reports constipation, Denies diarrhea, Denies nausea and Denies vomiting Denies urinary frequency, Denies difficulty voiding and Denies dysuria Neuro Reports Normal hearing present, Denies confusion, Denies dizziness, Denies syncope and Denies weakness Psych Denies confusion Physical exam (Primary Care) Vital Signs: Last Vital Signs Temp 97.5 F 11/12/24 08:53 Pulse 80 11/12/24 08:53 BP 124/86 11/12/24 08:53 Pulse Ox 97 11/12/24 08:53 Oxygen Delivery Method Room Air 11/12/24 08:53 BMI result Body Mass Index 26.8 Tobacco/Smoking Status: Tobacco use Status Tobacco use date assessed 11/12/24 11/12/24 08:57 Patient Tobacco Use Status Former Tobacco user 11/12/24 08:57 Tobacco use type Cigarette 11/12/24 08:57 e-Cigarette/Vaping Use Never Used 11/12/24 08:57 PHQ-9: PHQ-9 Score PHQ-9: Total score 0 11/12/24 08:57 Depression Screening Interpretation: Negative Thrive Assessment: Date of Thrive Assessment Date Thrive assessed 08/10/24 11/12/24 08:57 Currently or been in a relationship where the following occur: No concerns reported Const General: No confusion Orientation/consciousness: No confusion HENMT Head: Yes normocephalic Ears: external ears normal and TM's normal bilaterally Face and sinus: Yes normal facial exam Mouth: moist mucous membranes Throat: Yes tonsils normal Eyes Conjunctivae: conjunctivae normal Pupils: Equal, round and reactive pupils present and Pupil accommodation reflex normal Direct Ophthalmoscopy: normal light reflex Neck Neck: No lymphadenopathy Thyroid: Thyroid normal Chest Chest palpation & inspection: normal inspection of the chest Resp Effort & Inspection: normal respiratory effort and no audible wheezes Auscultation: clear to auscultation bilaterally, no crackles, no wheezes and lung sounds not diminished Cardio Rate: regular rate Rhythm: regular rhythm Peripheral pulses: radial pulses present and dorsalis pedis present GI Other: guaiac negative Palpation (GI): no masses Auscultation: normal bowel sounds and normoactive bowel sounds Skin General skin exam: no rashes or lesions noted Rashes: no rashes Neuro General: No confusion Cranial nerves: Yes Equal, round and reactive pupils present and Yes Normal hearing present Cognition (Neuro): normal cognition Gait exam (Neuro): Normal gait present Motor exam (neuro): 5/5 motor strength present throughout Deep tendon reflexes (DTR's): Right brachioradialis reflex intensity grade: 2+, Left brachioradialis reflex intensity grade: 2+, Right patellar reflex intensity grade: 2+ and Left patellar reflex intensity grade: 2+ Extrem General: No edema Coding Level of Care Code Est Pt Prev Care >65y(95589) Diagnoses Annual physical exam Z00.00 Hypercholesterolemia E78.00 Migraine without aura and without status migrainosus, not intractable G43.009 Migraine type: without aura Status migrainosus presence: without status migrainosus Intractability: not intractable Peripheral vascular disease I73.9 Colon cancer screening Z12.11 Assessment & Plan Assessment & Plan (1) Annual physical exam: Code(s): Z00.00 - Encounter for general adult medical examination without abnormal findings Category: Medical Plan: Patient is advised to eat healthy, keep well hydrated, keep active and have adequate sleep. (2) Hypercholesterolemia: Comment: ASCVD risk 8.7% Code(s): E78.00 - Pure hypercholesterolemia, unspecified Category: Medical Plan: Avoid fried foods, chicken skin, eggs, butter margarine, pastries and meat. Be it pork or beef they have a lot of cholesterol LDL goal of less than 130 and triglyceride of less than 150 (3) Migraine: Code(s): G43.909 - Migraine, unspecified, not intractable, without status migrainosus Category: Medical Qualifiers: Migraine type: without aura Status migrainosus presence: without status migrainosus Intractability: not intractable Qualified Code(s): G43.009 - Migraine without aura, not intractable, without status migrainosus Plan: Patient is advised to eat healthy, keep well hydrated, keep active and have adequate sleep. (4) Peripheral vascular disease: Code(s): I73.9 - Peripheral vascular disease, unspecified Category: Medical Plan: When sitting down elevate the legs, exercise, and support stockings (5) Colon cancer screening: Comment: Temo last done in 2021 Code(s): Z12.11 - Encounter for screening for malignant neoplasm of colon Category: Medical Plan: Patient states this was done and so will await for the results Plan History of Present Illness The patient is a 63-year-old female presenting for her annual physical examination. She has been managing hypercholesterolemia, with her last LDL reading at 173 mg/dL. Attempts to control her cholesterol with ezetimibe in the past have not been significantly effective. Her medical history is notable for peripheral vascular disease and migraine headaches, for which she uses medications as needed. She also takes aspirin and Motrin sparingly for pain relief, mindful of the potential risks these medications pose to her stomach and kidneys. In her past evaluations, she was found to have a positive antibody for hepatitis and a noted vitamin D insufficiency. The patient's lifestyle includes a balanced diet focusing on reducing meat and increasing vegetable intake, although she admits to occasional dietary deviations. There is a suspected hereditary component to her cholesterol issues without any identified paternal history. Colon cancer screening was performed with Cologuard in 2021, and she is awaiting results for a recent test. 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 - Nutritional intake: Consumes a balanced diet with an emphasis on vegetables and limited meat - Exercise: Active at work, plans to increase walking post-senior care - Denies alcohol and tobacco use Review of Systems - General: Denies dizziness, fainting, or fever - Cardiovascular: Denies chest pain or discomfort - Gastrointestinal: Reports occasional heartburn, denies nausea, vomiting, or diarrhea - Genitourinary: Denies nocturia - Musculoskeletal: Denies new joint or muscle pain, reports use of Motrin twice a week - Neurological: Reports episodic migraines, denies recent changes in headaches - Respiratory: Denies shortness of breath or new respiratory symptoms - Eyes: Reports dryness, seeing a specialist regularly Physical Exam General: Cooperative, healthy appearing, comfortable, no acute distress and well developed Orientation: Patient oriented x3 Limitations: No limitations Head: Normal to inspection Ears: Hearing grossly normal bilaterally Nose: Normal external nose present Face and sinus: Normal facial exam Eyes: Appearance normal, both eyes and all related structures Neck: Normal visual inspection and Yes full ROM Respiratory: Normal respiratory effort and able to speak in complete sentences. Clear to auscultation bilaterally Cardiovascular: Regular rate and rhythm. Normal S1 and S2 GI: Normal to inspection. Soft to palpation and nontender Skin: No rashes or lesions noted Neuro: Patient oriented x3 Extremities: Normal to inspection Results - Labs: LDL of 173 mg/dL; vitamin D, folic acid, and thyroid levels within normal limits - Hepatitis panel: Antibody positive - Previous Cologuard test conducted in September 2021 Plan Re-attempted use of ezetimibe is planned to manage the patient's hypercholesterolemia, with reassessment in three months through repeat blood work to gauge treatment effectiveness. Implementing lifestyle modifications, including a healthy diet and more activity, is recommended post-senior care. Maintaining vigilance for pharmacological side effects, particularly gastrointestinal, from ezetimibe is needed. The patient should continue current management for peripheral vascular disease and migraines, with consideration for future adjustments if clinical presentations change. Discussed and reinforced the importance of vaccination with the pneumococcal vaccine recommended at her age to prevent pneumonia, and will follow through after receiving consent. New developments or complications will prompt reevaluation with potential adjustments to her management plan. Patient was informed and verbally consented to the use of an ambient scribe for clinic note documentation during this visit. Discussion Notes During the visit, I reviewed management options with the patient, focusing on hypercholesterolemia which remains inadequately controlled. I suggested a trial of ezetimibe, explaining it is not a statin and typically has fewer side effects. The patient consented to this plan. I discussed the importance of dietary compliance and encouraged regular physical activity after her upcoming senior care, as these are pivotal in managing her cholesterol levels. I provided anticipatory guidance on expected minor side effects of ezetimibe and emphasized consistent follow-up. The recommendation for pneumococcal vaccination was made in light of her age, and anticipatory guidance discussed about staying active and maintaining a nutritious diet to support overall health as she transitions into senior care. Patient Instructions - Start taking the prescribed ezetimibe as directed. - Maintain a cholesterol-friendly diet, emphasizing vegetables and limiting red meat. - Increase physical activity post-senior care, aiming for regular walking. - Monitor for any potential side effects, such as bloating or gastrointestinal changes. - Follow up with me in three months for evaluation and repeat blood tests. - Schedule pneumococcal vaccination as discussed. - Report any new symptoms or concerns promptly, especially if related to medication. - Continue current migraine and peripheral vascular disease management strategies. Orders: Orders Comprehensive Met. Panel 3 Months E78.00 - Pure hypercholesterolemia, unspecified Lipid Panel 3 Months E78.00 - Pure hypercholesterolemia, unspecified Medications: Refilled ezetimibe (Zetia) 10 mg PO DAILY 30 tabs 4RF E78.00 - Pure hypercholesterolemia, unspecified
[2024-11-12 08:53] VITALS: BP 124/86; PULSE 80; TEMP 36.4; O2SAT 97; BMI 26.8
--- OUTSIDE RECORDS SUMMARY | 2024-11-12 09:38 | XMS_ITS ---
Author Organization [facility] Address [address] [place] [address] Care Team Providers Care Box Icer Name Role Phone Leif Chu Primary Care Provider Blayne Pierre [phone] REASON FOR VISIT otc orthotics Encounters Encounter Location Date Provider Diagnosis [facility] [address] [place] [address] 01/25/2024 Blayne Jenkins Plan Of Treatment No Information Progress Notes * Lc NÚÑEZB: 959 (63 yo F)Acc No.[id number]:01/25/2024 Patient:?DONNALazarus OdellKeri :1960???Age:63 Y???Sex:Female Address:[address] [place], [place] [address], [address] * true * Date:? Generated for Printi ng/Farubag/eTransmitting on:?11/12/2024 09:38 AM EDT
--- OUTSIDE RECORDS SUMMARY | 2024-11-12 09:38 | XMS_ITS ---
Author Organization [facility] Address [address] [place] [address] Care Team Providers Care Supervisor Telephone Information Name Role Phone Leif Chu Primary Care Provider Blayne Pierre [phone] REASON FOR VISIT bought 2 bags lambs wool Encounters Encounter Location Date Provider Diagnosis [facility] [address] [place] [address] 01/25/2024 Blayne Jenkins Plan Of Treatment No Information Progress Notes * Lc NÚÑEZB: 959 (63 yo F)Acc No.[id number]:01/25/2024 Patient:?Niya Keri :1960???Age:63 Y???Sex:Female Address:[address] [place], [place] [address], [address] * true * Date:? Generated for Printi ng/Farubag/eTransmitting on:?11/12/2024 09:38 AM EDT
== END 2024-11-12 09:25 | disposition home or self-care (01) ==
LOC: HO.HMCH 08:52
PROVIDERS: PCP Internal Medicine; Visit Provider Internal Medicine
DX: Z00.00 Encounter for general adult medical examination without abnormal findings (principal); E78.00 Pure hypercholesterolemia, unspecified; G43.009 Migraine without aura, not intractable, without status migrainosus; I73.9 Peripheral vascular disease, unspecified; Z12.11 Encounter for screening for malignant neoplasm of colon

== ENCOUNTER → 2024-11-12 08:51 | Outpatient (BNVA) | payer OTHER, SELFPAY | PROVIDERS: PCP Internal Medicine; Visit Provider Internal Medicine | DX: Z13.89 Encounter for screening for other disorder (principal) ==

== ENCOUNTER 2025-03-07 07:02 | Outpatient (REF) | payer MEDICARE, SELFPAY ==
--- OUTSIDE RECORDS SUMMARY | 2023-12-20 09:45 | XMS_ITS ---
Author Organization [facility] Address [address] [place] [address] Care Team Providers Care Blood Bank Laboratory Professional Name Role Phone Leif Chu Primary Care Provider Blayne Pierre [phone] REASON FOR VISIT Last PCP Visit: 10/31/23, Foot pain Medications Medication SIG (Take, Route, Frequency, Duration) Notes Start Date End Date Status Voltaren 1 % as directed Externally Active Encounters Encounter Location Date Provider Diagnosis [facility] [address] [address] 12/20/2023 Blayne Jenkins Pain in right foot [...] * Lc NÚÑEZB: 959 (64 yo F)Acc No.[id number]:12/20/2023 Progress Notes Patient: Keri CRAWFORD Provider: Jessica Jenkins DPM :1960 A ge:63 Y S ex:Female Date:12/20/2023 Address:[address] [place] [address] Pcp:Leif Chu Subjective: * Chief Complaints: * 1 . Last PCP Visit: 10/31/23. 2. Foot pain. * HPI: F oot Pain: Nature: s harp, aching. Location B ottom, Forefoot, Right . Duration: 1 month. 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 Aggrevated: a ny pressure, [...] ardiovascular: Pacemaker d enies, denies, denies. M ENVIRONMENTAL CONSTRUCTION ENGINEER d enies, denies, denies. 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
[2025-03-07 10:52] LABS: Alanine Aminotransferase 20 U/L (0-31); Albumin Level 4.4 g/dL (3.5-5.0); Alkaline Phosphatase 54 U/L (39-117); Anion Gap 11 (12-20); Aspartate Amino Transferase 27 U/L (5-31); Blood Urea Nitrogen 16 mg/dL (9-16); Calcium 9.1 mg/dL (8.4-10.2); Carbon Dioxide 27 mmol/L (22-29); Chloride 109 mmol/L (96-108); Cholesterol 255 mg/dL (<200); Estimated Glomerular Filt Rate > 60; HDL Cholesterol 37 mg/dL (>40); Potassium 3.8 mmol/L (3.3-5.1); Sodium 143 mmol/L (135-145); Total Protein 7.0 g/dL (6.5-8.0); Triglycerides 165 mg/dL (<150)
== END 2025-03-07 07:03 | disposition home or self-care (01) ==
LOC: HO.HMGCLDS 07:02
PROVIDERS: PCP Internal Medicine; Visit Provider Internal Medicine
DX: E78.00 Pure hypercholesterolemia, unspecified (principal)
CPT/HCPCS: 36415; 80053; 80061

== ENCOUNTER 2025-03-12 08:40 | Outpatient (AMB) | payer MEDICARE, BC, SELFPAY ==
--- OUTSIDE RECORDS SUMMARY | 2023-12-20 09:45 | XMS_ITS ---
Author Organization [facility] Address [address] [facility] [place] [address] Care Team Providers Care Digital Media Specialist Name Role Phone Leif Chu Primary Care Provider Blayne Pierre [phone] REASON FOR VISIT Last PCP Visit: 10/31/23, Foot pain Medications Medication SIG (Take, Route, Frequency, Duration) Notes Start Date End Date Status Voltaren 1 % as directed Externally Active Encounters Encounter Location Date Provider Diagnosis [facility] [address] [address] 12/20/2023 Blayne Jenkins Pain in right foot M79.671 ; Metatarsalgia, right foot M77.41 ; Hallux valgus (acquired), right foot M20.11 and Other hammer toe(s) (acquired), right foot M20.41 Assessments Encounter Date Diagnosis (ICD Code) Assessment Notes Treatment Notes Treatment Clinical Notes Section Notes 12/20/2023 Pain in right foot (ICD-10 - M79.671) 12/20/2023 Metatarsalgia, right foot (ICD-10 - M77.41) 12/20/2023 Hallux valgus (acquired), right foot (ICD-10 - M20.11) 12/20/2023 Other hammer toe(s) (acquired), right foot (ICD-10 - M20.41) Plan Of Treatment Medication Medication Name Sig Start Date Stop Date Notes Voltaren 1 % as directed Externally Next Appt Details Follow Up: 4 Weeks, Reason: Progress Notes * Lc NÚÑEZB: 959 (64 yo F)Acc No.[id number]:12/20/2023 Progress Notes Patient: Keri CRAWFORD Provider: Jessica Jenkins DPM :1960 A ge:63 Y S ex:Female Date:12/20/2023 Address:[address] [place] [address] Pcp:Leif Chu Subjective: * Chief Complaints: * 1 . Last PCP Visit: 10/31/23. 2. Foot pain. * HPI: F oot Pain: Nature: s harp, aching. Location B ottom, Forefoot, Right . Duration: 1 month. 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 Course: w anne. Aggrevated: a ny pressure, standing, walking, work. Treatments: r est, motrin. Quality/Severity 8 , scale 1-10. * ROS: G eneral/Constitutional: Nausea d enies, denies, denies. V omiting d enies, denies, denies. H sherlyn Thirst d enies, denies, denies. L oss appetite d enies, denies, denies. C hills d enies, denies, denies. F atigue d enies, denies, denies. F ever d enies, denies, denies. N ight Sweats d enies, denies, denies. U nexplained weight loss d enies, denies, denies. U nexplained weight gain d enies. O phthalmologic: Blurred vision d enies, denies. R ed eye d enies, denies. H EENTM: Dentures d enies, denies, denies. D izziness d enies, denies, denies. G lasses/contacts a dmits, denies, denies. R etinopathy d enies, denies, denies. B lurred/double vision d enies, denies, denies. T MJ d enies, denies, denies. D ischarge/drainage d enies, denies, denies. I mplants d enies, denies, denies. S ore throat d enies. D ental implants d enies. H kamari of hearing d enies, denies, denies. D ifficulty chewing/swallowing/speaking d enies, denies, denies. N ose bleeds d enies, denies, denies. S ore mouth d enies, denies, denies. S wollen glands d enies, denies. R espiratory: On Oxygen d enies, denies, denies. P neumonia/pleurisy?denies, denies, denies. B ronchitis d enies, denies, denies. E mphysema d enies, denies, denies. C oughing d enies, denies, denies. C ough blood d enies, denies, denies. S hortness of breath d enies, denies, denies. W heezing d enies, denies, denies. C ardiovascular: Pacemaker d enies, denies, denies. M WOOD FENCE ERECTOR d enies, denies, denies. W PW d enies, denies, denies. C HF d enies, denies, denies. H eart attack d enies, denies, denies. S eptal defect d enies, denies, denies. R apid beat denies, denies, denies. C hest pain d enies, denies, denies. A trial Fib. d enies, denies, denies. M urmur/Palpitations d enies, denies, denies. G astrointestinal: Hemorrhoids d enies, denies, denies. S tomach/Abdominal pain d enies, denies, denies. D ark blood stool d enies, denies, denies. I rritable bowel d enies, denies, denies. C onstipation d enies, denies, denies. D iarrhea denies, denies, denies. V omiting d enies, denies. H ematology: Swelling d enies, denies, denies. C lots d enies.?Varicose Veins a dmits. B ruising d enies, denies, denies. B leeding problem?denies, denies, denies. G enitourinary: Blood urine d enies, denies, denies. F requent/Painfu/urination/bladder control d enies, denies, denies. K idney stones d enies, denies, denies. I nfection (UTI) d enies, denies, denies. N ephropathy d enies, denies, denies. sex trans dis (STD) d enies. P rostate d enies. M usculoskeletal: Hammertoes d enies, denies, denies. B unions d enies, denies, denies. S coliosis/kyphosis d enies, denies. B ack Pain d enies. M uscle Cramps/ Resting d enies. M uscle cramps / walking d enies, denies, denies. G eneralized aches and pains d enies, denies, denies. W eakness d enies, denies, denies. I nteg.: Cordon d enies, denies, denies. S cars d enies, denies, denies. C orns/calluses a dmits, denies, denies. I ngrown nails d enies, denies, denies. P ainful nails a dmits, denies, denies. O pen Sores d enies. R ashes d enies, denies, denies. ? N eurologic: Difficulty sleeping d enies, denies, denies. B ipolar?denies, denies. B rain disorder d enies, denies, denies. N umbness d enies. B alance trouble d enies, denies, denies. C onfusion d enies, denies, denies. F ainting/blackouts d enies, denies, denies. H eadache d enies, denies. T ingling d enies. T remors d enies, denies, denies. * Medical History: Objective: * Vitals: * Examination: G eneral Examination: GENERAL APPEARANCE: p leasant, alert, well nourished, well developed, well hydrated, with good attention to hygene/body habitus, and in no acute distress. ORIENTED: p erson,place, and time. N eurological: SENSORY: Neurological exam demonstrates pop plantar right 2nd mtpj. TINEL'S COMPRESSION: N egative tarsal tunnel, dory pedis, and medial calcaneal nerves B/L. BABINSKI REFLEX: a bsent. N euroma Pain: PALPATION: N o interspace pain noted on palpation. ? V ascular: DP PULSES (B): 2 /4, B/L. PT PULSES (B): 2 /4, B/L. CAPILLARY FILL TIME: 3 secs. per digit, B/L. TROPHIC CONDITION-TEXTURE/ELASTICITY/TURGOR/HAIR GROWTH (B):?normal, B/L. TEMPERTURE GRADIENT (C): w arm to cool, proximal to distal, B/L. PIGMENTATION: n ormal, B/L. EDEMA (C): n o edema. TELANGECTASIA: a bsent. VARICOSITIES: a bsent. D ermatologic: SKIN FINDINGS: S kin exam reveals normal texture, elasticity, and tugor. There are no masses. The interspaces are clear, B/L . O rthopedic: MUSCLE STRENGTH: 5 /5 all groups in a symmetrical fashion , B/L. GAIT ABNORMALITY: p ronated, abducted, B/L. BUNION: Medially prominent 1st MPJ, RIGHT, Lateral tracking 1st MPJ incompletely reducible. DIGITAL DEFORMITIES: Digital contracture, PIPJ, 2-5 B/L, incompl-reducible with WB, or to push-up test, no over, nor underlapping. X -Rays - IMAGING REPORT: Clinical Indication(s): Evaluate Biomechanical Deformity.? Views: 3 views of Foot, RIGHT. Findings: mild generalized decrease in bone density. Foot structure: reveals excess pronation with, anterior break in cyme line. Digits: show asymmetrical joint space narrowing at the PIPJ consistent with clinical finding of hammertoe deformity, show enlarged/hypertrophied phalangeal head(s) consistent for clinical finding of hammertoe deformity, show dorsal subluxation of MTPJ, 2nd digit. HAV: increased First Intermetatarsal angle and Hallux Abductus angle consistent with Bunion deformity noted, hypertrophy of the dorsal and medial 1st MTH without subchondral cyst, moderate. Assessment: * Assessment: 1. P ain in right foot - M79.671 (Primary) 2 . M etatarsalgia, right foot - M77.41 3 . H allux valgus (acquired), right foot - M20.11 4 .?Other hammer toe(s) (acquired), right foot - M20.41 Plan: * Treatment: * Procedure Codes: 7 3630 X-RAY EXAM OF RIGHT FOOT 3V, Modifiers: 26 , RT * Follow Up: 4 Weeks * Images: * The named appointment provid er may or may not be the originator of this progress note, and it is not deemed complete until electronically signed by the appointment provider. 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 There are no masses. The interspaces are clear, B/L Orthopedic GAIT ABNORMALITY: pronated, abducted, B/L BUNION: Medially prominent 1 st MPJ, RIGHT, Lateral tracking 1st MPJ incompletely reducible DIGITAL DEFORMITIES: Digital contracture , PIPJ, 2-5 B/L, incompl-reducible with WB, or to push-up test, no over, nor underlapping MUSCLE STRENGTH: 5/5 all groups in a symmetrical fashion , B/L General Examination GENERAL APPEARANCE: pleasant , alert, well nourished, well developed, well hydrated, with good attention to hygene/body habitus, and in no acute distress ORIENTED: person,place, and ti me Vascular DP PULSES (B): 2/4, B/L PT PULSES (B): 2/4, B/L CAPILLARY FILL TIME: 3 secs. per digit, B/L TEMPERTURE GRADIENT (C): warm to cool, p roximal to distal, B/L TROPHIC CONDITION-TEXTURE/ELASTICITY/TURGOR/HAIR GROWTH (B): normal, B/L EDEMA (C): no edema TELANGECTASIA: absent VARICOSITIES: absent PIGMENTATION: normal, B/L X-Rays - IMAGING REPORT Findings: mild generalized decrease in bone density Digits: show asymmetrical juan jose int space narrowing at the PIPJ consistent with clinical finding of hammertoe deformity, show enlarged/hypertrophied phalangeal head(s) consistent for clinical finding of hammertoe deformity, show dorsal subluxation of MTPJ, 2nd digit Foot structure: reveals excess prona tion with, anterior break in cyme line HAV: increased First Inte rmetatarsal angle and Hallux Abductus angle consistent with Bunion deformity noted, hypertrophy of the dorsal and medial 1st MTH without subchondral cyst, moderate Views: 3 views of Foot, RIG HT Clinical Indication(s): Evaluate Biomech anical Deformity
--- NOTE | 2025-03-12 08:46 | A.OFFPC_ITS ---
Vital Signs 03/12/25 08:47 Height 5 ft 6 in Weight 166 lb 2 oz BMI 26.8 BP 140/80 H Blood Pressure Location Lt brachial Position Sitting Pulse 75 Pulse Source Pulse Oximeter Temp 97.1 F Temp Source Temporal Artery Scan Pulse Oximetry (%) 98 Oxygen Delivery Method Room Air Intake Visit Reasons: cholesterol Intake Note: Patient is here to follow up on Cholesterol. [employer] Supervisor Required: No Scarf Gluer: Not Required per policy Accompanied by: Self / Same As Patient Allergies atorvastatin Allergy (Unknown, Verified 03/12/25 08:47) joint pain pravastatin Allergy (Unknown, Verified 03/12/25 08:47) Unknown simvastatin Allergy (Unknown, Verified 03/12/25 08:47) Unknown Medication List - Last Reconciled 03/12/25 by Leif Chu MD alclometasone 0.05% 1 appl topical BID PRN aspirin (Adult Aspirin Regimen) 81 mg PO DAILY compress.stocking,knee,reg,med As directed 20-30 mm HG ezetimibe (Zetia) 10 mg PO DAILY ibuprofen (Motrin IB) 200 mg PO Q6H PRN bvjlbaet-fpi-jouf-FA-vit K-lut 8 mg iron-400 mcg-50 mcg (Centrum Silver Women) 1 tab PO DAILY salmon oil-omega-3 fatty acids 1,000-210 mg caps PO sumatriptan succinate (Imitrex) 100 mg PO .QD PRN Tobacco use date assessed: 03/12/25 Fall risk assessment: No Falls in past year Last assessed Fall Risk: 03/12/25 Dental Screening Dental Screen Date: 11/12/24 [facility] Medical History (Updated 11/12/24 @ 09:01 by Leif Chu MD) Colon cancer screening Exposure to blood or body fluid Low back pain Annual physical exam COVID-19 virus infection Colonoscopy refused Anxiety Vitamin D deficiency Hypercholesterolemia Migraine Surgical History History of varicose veins History of detached retina repair History of eye surgery Family History Father No problems noted. Mother Stroke Hypertension Paternal Uncle Myocardial infarction Family/Other Depression with anxiety Daughter Substance abuse Social History Housing: House Alcohol intake: never Patient Tobacco Use Status: Former Tobacco user Tobacco use type: Cigarette Years Smoked: teenager e-Cigarette/Vaping Use: Never Used Second Hand Smoke Exposure: Yes service: No Current occupational status: employed Cognitive needs: No Hearing needs: No Vision needs: Yes Female Reproductive History Menstrual Age of Menarche: 12 Questionnaire Thrive Questionnaire Date Thrive assessed: 08/10/24 NITIN-7 AMB Questionnaire NITIN-7 Date NITIN - 7 assessed: 08/10/24 Source: Developed by Drs. Amol Murray, Nelly Garcia, Narendra Melchor and colleagues, with an educational damaso from [employer]. Physical exam (Primary Care) Vital Signs: Last Vital Signs Temp 97.1 F 03/12/25 08:47 Pulse 75 03/12/25 08:47 BP 140/80 H 03/12/25 08:47 Pulse Ox 98 03/12/25 08:47 Oxygen Delivery Method Room Air 03/12/25 08:47 BMI result Body Mass Index 26.8 Tobacco/Smoking Status: Tobacco use Status Tobacco use date assessed 03/12/25 03/12/25 08:51 Patient Tobacco Use Status Former Tobacco user 03/12/25 08:51 Tobacco use type Cigarette 03/12/25 08:51 e-Cigarette/Vaping Use Never Used 03/12/25 08:51 Thrive Assessment: Date of Thrive Assessment Date Thrive assessed 08/10/24 03/12/25 08:51 Const General: alert; No acute distress Eyes Conjunctivae: conjunctivae normal Resp Auscultation: clear to auscultation bilaterally Cardio Rate: regular rate Rhythm: regular rhythm GI Inspection: Yes normal to inspection Extrem General: Yes normal to inspection and No edema Coding Level of Care Code Est Pt Level 4 (66561) Complex EM visit Add On G2211 Diagnoses Hypercholesterolemia E78.00 Overweight (BMI 25.0-29.9) E66.3 Peripheral vascular disease I73.9 Migraine without aura and without status migrainosus, not intractable G43.009 Intractability: not intractable Migraine type: without aura Status migrainosus presence: without status migrainosus Assessment & Plan Assessment & Plan (1) Hypercholesterolemia: Comment: ASCVD risk 8.7% Code(s): E78.00 - Pure hypercholesterolemia, unspecified Category: Medical Plan: Avoid fried foods, chicken skin, eggs, butter margarine, pastries and meat. Be it pork or beef they have a lot of cholesterol LDL goal of less than 130 and triglyceride of less than 150 on Zetia patient is statin intolerant. (2) Overweight (BMI 25.0-29.9): Code(s): E66.3 - Overweight Category: Medical Plan: Continue with diet and exercise (3) Peripheral vascular disease: Code(s): I73.9 - Peripheral vascular disease, unspecified Category: Medical Plan: When sitting down elevate the legs, exercise, and support stockings (4) Migraine: Code(s): G43.909 - Migraine, unspecified, not intractable, without status migrainosus Category: Medical Qualifiers: Intractability: not intractable Migraine type: without aura Status migrainosus presence: without status migrainosus Qualified Code(s): G43.009 - Migraine without aura, not intractable, without status migrainosus Plan: Patient is advised to eat healthy, keep well hydrated, keep active and have adequate sleep. Plan History of Present Illness The patient is a 64-year-old female presenting for a follow-up visit. The patient has a history of hypercholesterolemia, with her LDL cholesterol currently elevated at 185 mg/dL and triglycerides at 165 mg/dL. She is statin intolerant and is currently on ezetimibe (Zetia) therapy. Despite dietary efforts, her LDL cholesterol remains elevated, which may be attributed to genetic factors as her siblings also have similar issues. The patient reports improvement in her migraine symptoms, which are managed with medication and adequate hydration. She maintains a regular sleep schedule, going to bed around 10 PM and waking up between 5 and 6 AM. The patient has a history of peripheral vascular disease and has undergone two surgeries for varicose veins, the last being two years ago. She experiences symptoms due to prolonged standing and is considering the use of prescription support stockings for relief. Preventative care measures include a negative Cologuard test in October 2024, an up-to-date mammogram as of July 2024, and a bone density test in September 2024. Health Maintenance - Colon cancer screening with stool test: Negative Cologuard in October 2024 - Mammogram: Up to date as of July 2024 - Bone density test: Conducted in September 2024 - Diet and exercise: Continued emphasis on healthy eating and physical activity Social History - Sleep: Regular schedule, sleeps from 10 PM to 5-6 AM - Diet: Emphasis on healthy eating, including berries and vegetables - Family history: Siblings with hypercholesterolemia Review of Systems - Cardiovascular: Reports palpitations. Denies chest pain. - Neurological: Reports improvement in migraines. Denies dizziness. Physical Exam Results - Labs: LDL cholesterol 185 mg/dL, triglycerides 165 mg/dL - Screening Tests: Negative Cologuard in October 2024, mammogram up to date as of July 2024, bone density test in September 2024 Plan The patient will continue with ezetimibe Zetia) for hypercholesterolemia management, given her intolerance to statins. Dietary modifications and regular exercise are emphasized to help manage cholesterol levels, with a target LDL goal of less than 130 mg/dL and triglycerides less than 150 mg/dL. For peripheral vascular disease and varicose veins, the patient is advised to use prescription support stockings to alleviate symptoms associated with prolong ed standing. She is encouraged to elevate her legs when sitting and engage in regular exercise to improve circulation. Preventative care measures are up to date, including colon cancer screening, shilpa mogram, and bone density test. Patient was informed and verbally consented to the use of an ambient scribe for clinic note documentation during this visit. Discussion Notes During the visit, we discussed the management of hypercholesterolemia with ezetimibe due to the patient's statin intolerance. I emphasized the importance of dietary modifications and regular exercise to achieve cholesterol targets. We also reviewed the use of prescription support stockings for managing symptoms of peripheral vascular disease and varicose veins. Preventative care measures, including colon cancer screening, mammogram, and bone density test, were confirmed to be up to date. Patient Instructions - Continue taking ezetimibe (Zetia) as prescribed. - Follow a healthy diet and engage in regular exercise to manage cholesterol levels. - Use prescription support stockings to help with leg symptoms. - Elevate legs when sitting to improve circulation. - Ensure all preventative screenings are up to date. Medications: New compress.stocking,knee,reg,med As directed 20-30 mm HG 12 ea 0RF I73.9 - P eripheral vascular disease, unspecified
[2025-03-12 08:47] VITALS: BP 140/80; PULSE 75; TEMP 36.2; O2SAT 98; BMI 26.8
== END 2025-03-12 09:29 | disposition home or self-care (01) ==
LOC: HO.HMCH 08:41
PROVIDERS: PCP Internal Medicine; Visit Provider Internal Medicine
DX: E78.00 Pure hypercholesterolemia, unspecified (principal); E66.3 Overweight; I73.9 Peripheral vascular disease, unspecified; G43.009 Migraine without aura, not intractable, without status migrainosus

== ENCOUNTER → 2025-03-12 08:40 | Outpatient (BNVA) | payer MEDICARE, SELFPAY | PROVIDERS: PCP Internal Medicine; Visit Provider Internal Medicine | DX: E66.3 Overweight (principal); E78.00 Pure hypercholesterolemia, unspecified; I73.9 Peripheral vascular disease, unspecified; G43.009 Migraine without aura, not intractable, without status migrainosus; Z68.26 Body mass index [BMI] 26.0-26.9, adult | CPT/HCPCS: 99212 ==

== ENCOUNTER 2025-07-12 08:05 | Outpatient (AMB) | payer MEDICARE, SELFPAY ==
[2025-07-12 08:07] VITALS: BP 140/84; PULSE 80; TEMP 36.5; O2SAT 98; BMI 27.1
--- NOTE | 2025-07-12 08:07 | MHC.OFFWIV ---
Intake Vital Signs 07/12/25 08:07 Height 5 ft 6 in Weight 168 lb BMI 27.1 BP 140/84 H Blood Pressure Location Lt brachial Position Sitting Pulse 80 Pulse Source Pulse Oximeter Temp 97.7 F Temp Source Oral Pulse Oximetry (%) 98 Oxygen Delivery Method Room Air Intake Visit Reasons: EP lt eye irritation Intake Note: Patient presents c/o left eye irritation - seen 1 year ago for same problem, prescribed erythromycin ointment. Patient Tobacco Use Status: Former Tobacco user Allergies atorvastatin Allergy (Unknown, Verified 07/12/25 08:10) joint pain pravastatin Allergy (Unknown, Verified 07/12/25 08:10) Unknown simvastatin Allergy (Unknown, Verified 07/12/25 08:10) Unknown HPI HPI Comments History of Present Illness Details This is a 64-year-old female with a past medical history of dry eyes presenting for evaluation of left eye irritation and itching that has been ongoing for the past 3 days. Patient denies any visual changes, foreign body sensation, discharge or loss of peripheral vision. Patient uses glasses for vision daily but does not use any contact lenses. Patient has been using artificial tears for minimal relief of her symptoms. [facility] Medical History (Updated 07/12/25 @ 08:33 by Carole Johnson PA-C) Colon cancer screening Exposure to blood or body fluid Low back pain Annual physical exam COVID-19 virus infection Colonoscopy refused Anxiety Vitamin D deficiency Hypercholesterolemia Migraine Surgical History History of varicose veins History of detached retina repair History of eye surgery Family History Father No problems noted. Mother Stroke Hypertension Paternal Uncle Myocardial infarction Family/Other Depression with anxiety Daughter Substance abuse Social History Housing: House Alcohol intake: never Patient Tobacco Use Status: Former Tobacco user Tobacco use type: Cigarette Years Smoked: teenager e-Cigarette/Vaping Use: Never Used Second Hand Smoke Exposure: Yes service: No Current occupational status: employed Cognitive needs: No Hearing needs: No Vision needs: Yes Female Reproductive History Menstrual Age of Menarche: 12 Review of Systems Const All systems reviewed & are unremarkable except as noted in HPI and below Reports no additional complaints Eyes Denies blurry vision, Denies exophthalmos, Denies change in vision, Reports irritation (OS), Reports itchy eyes (OS), Denies other visual disturbances, Reports requires corrective lenses, Denies seeing flashes and Denies photophobia Skin/Breast Reports system reviewed and no additional complaints, except as documented and Reports lesions (redness left upper eyelid) Neuro Reports no additional complaints Psych Reports no additional complaints Aller/Immun Reports itchy eyes (OS) Physical Exam Vital Signs: Last Vital Signs Temp 97.7 F 07/12/25 08:07 Pulse 80 07/12/25 08:07 BP 140/84 H 07/12/25 08:07 Pulse Ox 98 07/12/25 08:07 Oxygen Delivery Method Room Air 07/12/25 08:07 BMI result Body Mass Index 27.1 Const General: cooperative, healthy appearing, comfortable, no acute distress, well developed, alert, awake, Physically active and well groomed Nutritional Appearance: average body habitus Orientation/consciousness: patient oriented x3 Limitations: no limitations HEENT Head: Yes normal to inspection Ears: hearing grossly normal bilaterally and external ears normal Eyes Visual Maguire: normal visual maguire by confrontation Alignment and Position: alignment normal Periorbital: periorbital findings normal Eyelids: Yes eyelid abnormality (erythema and edema left upper eyelid at mucocutaneous border, no horedeolum) Conjunctivae: conjunctivae normal Sclerae: sclerae normal Corneas: corneas normal Pupils: Equal, round and reactive pupils present EOM: EOMs intact bilaterally Direct Ophthalmoscopy: normal light reflex, no photophobia and No photophobia Neuro General: patient oriented x3 Cranial nerves: Yes Equal, round and reactive pupils present Psych Appearance: grossly normal Mental Status: mental status grossly normal Insight: Good insight present (Psych) Judgement: Good judgement present (Psych) Assessment & Plan Assessment & Plan (1) Blepharitis, left eye: Comment: There is no evidence of a hordeolum on clinical examination however her history coupled with her examination is consistent with an isolated blepharitis of the left lateral upper eyelid. Code(s): H01.006 - Unspecified blepharitis left eye, unspecified eyelid Qualifiers: Blepharitis type: unspecified type Eyelid: upper Qualified Code(s): H01.004 - Unspecified blepharitis left upper eyelid Plan: Erythromycin ointment 1 cm once daily x 7-10 days. Medications: New erythromycin apply 1cm to left eye once daily at bedtime 1 appl ophthalmic-Left DAILY 3.5 grams 0RF Coding Level of Care Code Est Pt Level 3 (08159) Diagnoses Blepharitis of left upper eyelid, unspecified type H01.004 Blepharitis type: unspecified type Eyelid: upper Time Spent (min) 20
== END 2025-07-12 08:37 | disposition home or self-care (01) ==
PROVIDERS: PCP Internal Medicine; Visit Provider Physician Assistant
DX: H01.004 Unspecified blepharitis left upper eyelid (principal)

== ENCOUNTER → 2025-07-12 08:05 | Outpatient (BNVA) | payer MEDICARE, SELFPAY | PROVIDERS: PCP Internal Medicine; Visit Provider Physician Assistant | DX: H01.004 Unspecified blepharitis left upper eyelid (principal) | CPT/HCPCS: 99212 ==

== ENCOUNTER 2025-07-23 07:45 | Outpatient (REF) | payer MEDICARE, SELFPAY ==
--- OUTSIDE RECORDS SUMMARY | 2025-07-23 07:47 | XMS_ITS | Patient Health Record ---
Author Organization [facility] Address [address] [place] [address] Care Team Providers Care Art Sales Consultant Name Role Phone Leif Chu Primary Care Provider Blayne Jain Unavailable [phone] Allergies No Known Allergies Reason For Referral No Information Medications Medication SIG (Take, Route, Frequency, Duration) Notes Start Date End Date Status Voltaren 1 % as directed Externally Active Aspirin 81 MG 1 tablet Orally Once a day; Duration: 30 day(s) Active SUMAtriptan Succinate 100 MG 1 tablet at least 2 hours between doses as needed Orally Twice a day Active Immunizations Vaccine Route Administration Date Status Comme nts Influenza Unknown 07/06/2021 Refused COVID-19 Raji & Raji/Taras Unknown 07/06/2021 R efused Social History Tobacco Use: Social History Observation [...] Status Risk Notes Problem Acquired hallux valgus (11506383) Hallux valgus (acquired), left foot (M20.12) Active confirmed Problem Acquired hallux valgus (70458817) Hallux valgus (acquired), right foot (M20.11) Active confirmed Problem Acquired hammer toe of right foot ([id number]) Other hammer toe(s) (acquired), right foot (M20.41) Active confirmed Plan Of Treatment Pending Test Test Name Order Date X ray : Foot, left 3V 07/06/2021 X ray : Foot, right 3V 11/07/2023 Insurance Providers Payer Name Payer Address Payer Phone Subscriber Number Group Number Insured Name Patient Relationship to Insured Coverage Start Date Coverage End Date [employer] [address] [address] [place] [address] [id number] Keri Núñez Self - patient is the insured Medical (General) History Medical History History ICD Code CAD (Cholesterol) Headaches/Migraines Chicken pox COVID-19 Surgical History Surgery Date(Month/Year)
== END 2025-07-23 07:46 | disposition home or self-care (01) ==
LOC: HO.MAMMO 07:45
PROVIDERS: PCP Internal Medicine; Visit Provider Internal Medicine
DX: Z12.31 Encounter for screening mammogram for malignant neoplasm of breast (principal)
CPT/HCPCS: 77063; 77067

== ENCOUNTER → 2025-07-23 08:00 | Outpatient (BNV) | payer MEDICARE, SELFPAY | PROVIDERS: PCP Internal Medicine; Visit Provider Internal Medicine | DX: Z12.31 Encounter for screening mammogram for malignant neoplasm of breast (principal) | CPT/HCPCS: 77063; 77067 ==